=== PATIENT | female | born 1950 | race Caucasian/White ===

== ENCOUNTER 2022-05-06 08:20 | Inpatient (IN) | payer MEDICARE, SELFPAY ==
[2022-05-06] VITALS (50 sets, daily range): BP systolic 73–153; BP diastolic 36–97; PULSE 74–113; RESP 7–26; TEMP 35.9–37.4; O2SAT 96–100
--- NOTE | ~2022-05-06 | XR_ITS ---
EXAMINATION: XR chest 1V portable DATE: 05/12/2022 06:06 INDICATION: Respiratory failure. TECHNIQUE: A single frontal view of the chest was obtained. COMPARISON: Chest single view 05/11/2022, CT abdomen and pelvis 06/05/2022 FINDINGS: The patient is rotated to her left. There are small pleural effusions. There are airspace o pacities in the mid and lower lung zones. No pneumothorax. The heart size is normal. A right upper ex tremity peripherally inserted central venous catheter (PICC) is seen with tip in the superior vena ca va. IMPRESSION: 1. Stable airspace opacities in the mid and lower lung zones, consistent with atelectasis versus pneu monia. 2. Stable small pleural effusions. Reviewed, dictated and finalized at location A. IMPRESSION: 1. Stable airspace opacities in the mid and lower lung zones, consistent with a telectasis versus pneumonia. 2. Stable small pleural effusions.
--- NOTE | ~2022-05-06 | XR_ITS ---
EXAMINATION: XR chest 1V portable DATE: 05/10/2022 06:17 INDICATION: Respiratory failure. TECHNIQUE: A single frontal view of the chest was obtained. COMPARISON: Chest single view 05/09/2022, CT abdomen and pelvis 05/06/2022 FINDINGS: The patient is rotated to her left. There are airspace opacities in the perihilar regions a nd at the lung bases. There are small pleural effusions. No pneumothorax. The heart size is normal. T he endotracheal tube tip is 1.3 cm above the kinsey. A right upper extremity peripherally inserted ce ntral venous catheter (PICC) is seen with tip in the superior vena cava. IMPRESSION: 1. Stable small pleural effusions. 2. Stable airspace opacities in the perihilar regions and at the lung bases, consistent with pulmonar y edema versus pneumonia. Reviewed, dictated and finalized at location A. IMPRESSION: 1. Stable small pleural effusions. 2. Stable airspace opacities in the perihilar regions and at the lung bases, co nsistent with pulmonary edema versus pneumonia.
--- NOTE | ~2022-05-06 | XR_ITS ---
EXAMINATION: XR chest 1V portable DATE: 05/07/2022 05:32 INDICATION: Intubation. TECHNIQUE: A single frontal view of the chest was obtained. COMPARISON: Chest single view 05/06/2022, CT abdomen and pelvis 05/06/2022 FINDINGS: There are airspace opacities in the lower lung zones, left worse than right. There is disco id atelectasis in right midlung zone. There is a small left pleural effusion. No pneumothorax. The he art size is normal. The endotracheal tube tip is 2.3 cm above the kinsey. IMPRESSION: 1. Small left pleural effusion. 2. Stable airspace opacities in the lower lung zones, left worse than right, consistent with atelecta sis or less likely pneumonia. Reviewed, dictated and finalized at location A. IMPRESSION: 1. Small left pleural effusion. 2. Stable airspace opacities in the lower lung zones, left worse than right, co nsistent with atelectasis or less likely pneumonia.
--- NOTE | ~2022-05-06 | XR_ITS ---
XR chest 2V 05/14/2022 13:24 Indication: Cough Procedure: AP and lateral views the chest Comparison: Comparison to multiple prior studies sequentially, with oldest reviewed study dated 05/09. Findings: PICC line tip in the SVC. Heart size normal. There is interstitial edema. Small pleural eff usions. No pneumothorax. Impression: 1: Mild interstitial edema with small pleural effusions. Reviewed, dictated and finalized at location A. Impression: 1: Mild interstitial edema with small pleural effusions.
--- NOTE | ~2022-05-06 | XR_ITS ---
XR chest 1V portable 05/11/2022 01:26 Indication: Increased oxygen demands Procedure: AP portable chest Comparison: Comparison to multiple prior studies sequentially, with oldest reviewed study dated 05/08. Findings: Interval removal of endotracheal tube. PICC line tip in the SVC. Heart size normal. Diffuse bilateral airspace disease unchanged, most likely edema. Small pleural effusions. No pneumothorax. Impression: 1: Unchanged diffuse bilateral airspace disease, most likely edema. Pneumonia less favored. 2: Small pleural effusions. Reviewed, dictated and finalized at location B. Impression: 1: Unchanged diffuse bilateral airspace disease, most likely edema. Pneumonia l ess favored. 2: Small pleural effusions.
--- NOTE | ~2022-05-06 | CT_ITS ---
EXAMINATION: CT abdomen pelvis wo con DATE: 05/06/2022 10:09 INDICATION: Nausea, vomiting and diarrhea. Abdominal discomfort. TECHNIQUE: Computed tomography (CT) of the abdomen and pelvis was performed without intravenous contr ast. The dose-length product was 675.80 mGy-cm. Automated exposure control and iterative reconstructi on technique were employed. COMPARISON: None. FINDINGS: Moderate size hiatal hernia. Small left pleural effusion. Dependent atelectasis of the left lower lobe. Heart size normal. There is atherosclerosis of the aorta without aneurysm. No lymphadeno hannah. Cirrhosis of the liver. Splenomegaly. Multiple collateral vessels are noted in the upper abdomen. The re are gallstones. There is ascites. Colonic diverticulosis without evidence for diverticulitis. Smal l fat-containing umbilical hernia. There is small bowel wall thickening of the duodenum and proximal jejunum, without definite obstruction. No free air identified. There is a possible small bowel intuss usception in the left mid abdomen, possibly transient. No acute osseous abnormality. IMPRESSION: 1. Cirrhosis with portal hypertension. Ascites per 2: Splenomegaly. 3: Abnormal small bowel wall thickening of the duodenum and proximal jejunum without definite obstruc tion, suspicious for enteritis. 4: Possible small bowel intussusception in the left mid abdomen which may be transient. 5: Moderate hiatal hernia. Reviewed, dictated and finalized at location A. IMPRESSION: 1. Cirrhosis with portal hypertension. Ascites per 2: Splenomegaly. 3: Abnormal small bowel wall thickening of the duodenum and proximal jejunum wi thout definite obstruction, suspicious for enteritis. 4: Possible small bowel intussusception in the left mid abdomen which may be tr ansient. 5: Moderate hiatal hernia.
--- NOTE | ~2022-05-06 | XR_ITS ---
XR chest ET placement DATE: 05/06/2022 20:39 INDICATION: Intubation TECHNIQUE: Portable supine AP view on 05/06/2022 at 2031 hours COMPARISON: None FINDINGS: This is a limited single view portable AP chest with the patient rotated to the left. Tip of ET tube is approximately 1.8 cm above kinsey. [place] range is 2-5 cm. Cardiomegaly. Aortic calcification. There is discoid atelectasis or scarring in the right mid lung and infiltrate or atelectasis in both lower lung zones, greatest in the left lower lobe. There may be minimal left pleural effusion. No blunting of the right costophrenic angle. No pneumothorax. Diffuse osteopenia. IMPRESSION: Bilateral infiltrate and/or atelectasis involving primarily the right mid and both lower lung zones, greatest in the left lower lobe ET tube 1.8 cm above kinsey Reviewed, dictated and finalized at Location A. Reviewed, dictated and finalized at location A. IMPRESSION: Bilateral infiltrate and/or atelectasis involving primarily the rig ht mid and both lower lung zones, greatest in the left lower lobe ET tube 1.8 cm above kinsey
--- NOTE | ~2022-05-06 | XR_ITS ---
EXAMINATION: XR chest 1V portable DATE: 05/09/2022 05:56 INDICATION: Respiratory failure. TECHNIQUE: A single frontal view of the chest was obtained. COMPARISON: Chest single view 05/08/2022 FINDINGS: There are small pleural effusions. There are airspace opacities in the mid and lower lung z ones with a perihilar and lower lung predominance. No pneumothorax. The heart size is normal. The end otracheal tube tip is 1.9 cm above the kinsey. A right upper extremity peripherally inserted central venous catheter (PICC) is seen with tip in the superior vena cava. IMPRESSION: 1. Small pleural effusions with worsening on the right. 2. Airspace opacities in the mid and lower lung zones with worsening on the right, consistent with at electasis versus pneumonia. Reviewed, dictated and finalized at location A. IMPRESSION: 1. Small pleural effusions with worsening on the right. 2. Airspace opacities in the mid and lower lung zones with worsening on the rig ht, consistent with atelectasis versus pneumonia.
--- NOTE | ~2022-05-06 | XR_ITS ---
EXAMINATION: XR chest 1V portable DATE: 05/08/2022 05:28 INDICATION: Respiratory failure. TECHNIQUE: A single frontal view of the chest was obtained. COMPARISON: Chest single view 05/07/2022, CT abdomen and pelvis 06/05/2022 FINDINGS: There is a small left pleural effusion. There are airspace opacities in the lower lung zone s. No pneumothorax. The heart size is normal. The endotracheal tube tip is 2.7 cm above the kinsey. IMPRESSION: 1. Stable small left pleural effusion. 2. Stable airspace opacities in the lower lung zones, consistent with atelectasis versus pneumonia. Reviewed, dictated and finalized at location A. IMPRESSION: 1. Stable small left pleural effusion. 2. Stable airspace opacities in the lower lung zones, consistent with atelectas is versus pneumonia.
--- NOTE | ~2022-05-06 | XR_ITS ---
EXAMINATION: XR chest PICC line DATE: 05/08/2022 09:39 INDICATION: Central line placement. TECHNIQUE: A single frontal view of the chest was obtained. COMPARISON: Chest single view at 5:06 AM FINDINGS: There is a small left pleural effusion. There are airspace opacities in the lower lung zone s. No pneumothorax. The heart size is normal. The endotracheal tube tip is 1.5 cm above the kinsey. A right upper extremity peripherally inserted central venous catheter (PICC) is seen with tip in the r ight atrium. IMPRESSION: 1. PICC tip in the right atrium. Retraction 4 cm is recommended. 2. Stable small left pleural effusion. 3. Stable airspace opacities in the lower lung zones, consistent with atelectasis versus pneumonia. Reviewed, dictated and finalized at location A. IMPRESSION: 1. PICC tip in the right atrium. Retraction 4 cm is recommended. 2. Stable small left pleural effusion. 3. Stable airspace opacities in the lower lung zones, consistent with atelectas is versus pneumonia.
[2022-05-06 09:02] LABS: Basophils Percent Auto 0.2 % (0.2-1.2); Eosinophils Percent Auto 0.2 % (0-4.4); Hematocrit 31.7 % (37.0-47.0); Hemoglobin 10.2 g/dL (12.0-15.0); Immature Granulocyte Absolute 0.05 K/mm3 (0.00-0.031); Immature Granulocyte Percent A 0.6 % (0-0.5); Lymphocytes Absolute Auto 1.35 K/mm3 (0.9-3.2); Lymphocytes Percent Auto 16.2 % (18.3-44.2); Mean Corpuscular HGB Conc 32.2 g/dl (32-36); Mean Corpuscular Hemoglobin 29.2 pg (26-34); Mean Corpuscular Volume 90.8 fl (80-100); Mean Platelet Volume 10.3 fl (7.4-10.4); Monocytes Absolute Auto 0.4 K/mm3 (0.1-0.6); Monocytes Percent Auto 4.4 % (2.6-8.5); Neutrophils Absolute Auto 6.5 K/mm3 (1.3-6.7); Neutrophils Percent Auto 78.4 % (45.5-73.1); Platelet Count Result 135 k/mm3 (150-375); Red Blood Count 3.49 M/mm3 (4.2-5.4); Red Cell Distribution Width 15.7 % (11.5-14.5); White Blood Count 8.3 K/mm3 (4.5-10.0)
--- NOTE | 2022-05-06 09:04 | ED.GIBLEED ---
HPI - GI Bleed General Chief complaint: GI Bleed Stated complaint: N/V X1D Time Seen by Provider: 05/06/22 08:53 History of Present Illness HPI Narrative: Patient is a 71-year-old female w/ history of gallstones, fatty liver disease here for evaluation of bloody vomit for the past 6 hours. Patient states that she woke up in the middle of the night, felt nauseated, and threw up vomitus that was red in color. She has had about 4 episodes of vomiting bloody emesis since, 2 episodes have been yellow in color. She additionally notes a diffuse abdominal cramping, most notable in her left lower quadrant. She states that she has had some diarrhea today but has been muddy in color, but has not noticed any blood. Denies any fevers or chills, weight loss, blood thinner use. She does note that she has had some intermittent issues with nosebleeds recently but none in the past day. She has never had a colonoscopy or endoscopy. She denies alcohol or NSAID use. She tells me she sees a liver specialist in [place] (where she is from) and receives regular RUQ ultrasounds, most recent in Aug was stable; had hemangioma but no other findings. Most recent bili was 1.8 in Sep. Related Data Home Medications Medication Instructions Recorded Confirmed albuterol sulfate 90 mcg/actuation 2 inh inhalation Q4H PRN Shortness 05/06/22 05/06/22 aerosol inhaler Of Breath Allergies Allergy/AdvReac Type Severity Reaction Status Date / Time codeine Allergy Vomiting Verified 05/06/22 09:43 Iodinated Contrast Media Allergy Difficulty Verified 05/06/22 09:43 Breathing Review of Systems Review of Systems: Gen: Denies fevers or chills Eyes: Denies eye pain or visual change ENT: Denies congestion Respiratory: Denies shortness of breath or cough CV: Denies chest pain or palpitations GI: Reports abdominal pain, nausea, vomiting, diarrhea. 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 Head: Normocephalic and atraumatic. EYES: PERRLA/EOMI, conjunctivae clear NOSE: No nasal drainage EARS: External ear normal in appearance THROAT: Oropharynx is clear. Mucous membranes are moist. NECK: Supple. No adenopathy, no masses. RESPIRATORY: Airway patent, respirations nonlabored. Clear to auscultation bilaterally, no rales, rhonchi, wheezing. CARDIOVASCULAR: Regular rate and rhythm without murmurs, rubs, or gallops. ABDOMINAL: Normoactive bowel sounds. Soft, nontender, nondistended. No rebound tenderness or guarding. : Normal rectal tone, no external hemorrhoids MUSCULOSKELETAL: Extremities are warm and well-perfused. Moves all extremities well. No edema. NEURO: Normal speech. No focal neurologic deficits. SKIN: Skin is warm and dry. No rashes. PSYCHIATRIC: Normal affect/mood. Course Vital Signs Vital signs: Vital Signs Temperature 98.1 F 05/06/22 08:23 Pulse Rate 113 H 05/06/22 08:23 Respiratory Rate 14 05/06/22 08:23 Blood Pressure 149/64 H 05/06/22 08:23 Pulse Oximetry 98 05/06/22 08:23 Oxygen Delivery Room Air 05/06/22 08:23 Temperature 97.6 F 05/06/22 20:49 Pulse Rate 90 05/06/22 20:49 Respiratory Rate 23 H 05/06/22 20:49 Blood Pressure 141/75 H 05/06/22 20:49 Pulse Oximetry 100 05/06/22 20:49 Oxygen Delivery Mechanical Ventilation 05/06/22 20:01 Procedures Stool Hemoccult
[2022-05-06 09:15] LABS: INR 1.8; Partial Thromboplastin Time 33.1 SECONDS (22.3-36.8); Prothrombin Time 20.3 Seconds (11.1-14.7)
[2022-05-06] MEDS: SODIUM CHLORIDE 0.9% IV 1,000 ML 999 ML IV CONT (09:16)
[2022-05-06] MEDS: ONDANSETRON INJ 4 MG/2 ML VIAL IV PUSH ×2 (09:17→13:25)
[2022-05-06 09:23] LABS: Alanine Aminotransferase 40 U/L (6-35); Alkaline Phosphatase 112 U/L (38-126); Anion Gap 8 mmol/L (8-16); Aspartate Amino Transferase 85 U/L (14-36); Bilirubin,Total 2.3 mg/dL (0.2-1.3); Blood Urea Nitrogen 24 mg/dL (7-17); Calcium 8.3 mg/dL (8.4-10.2); Carbon Dioxide 22 mmol/L (22-30); Chloride 108 mmol/L (98-107); Estimated CRCL calculation 50 ml/min; Estimated Glomerular Filt Rate > 60; Glucose 142 mg/dL (65-110); Potassium 4.6 mmol/L (3.4-5.0); Sodium 138 mmol/L (137-145)
[2022-05-06 10:07] LABS: Lipase 101 U/L (23-300)
[2022-05-06] MEDS: PANTOPRAZOLE SODIUM IV 40 MG VIAL 80 MG IV PUSH (10:36)
[2022-05-06] MEDS: SODIUM CHLORIDE 0.9% IV 100 ML 999 ML (10:42)
[2022-05-06] MEDS: OCTREOTIDE ACETATE 50 MCG/ML VIAL IV PUSH (12:01)
[2022-05-06 12:09] LABS: SARS-CoV-2 RNA PCR Negative
[2022-05-06 12:51] LABS: Hepatitis B Surface Antigen Negative (Negative)
[2022-05-06 13:14] LABS: Hepatitis C Virus Antibody Negative (Negative)
[2022-05-06 13:14] LABS: Hematocrit 25.7 % (37.0-47.0); Hemoglobin 8.2 g/dL (12.0-15.0)
[2022-05-06] MEDS: SODIUM CHLORIDE 0.9% IV 1,000 ML 999 ML (13:24)
--- NOTE | 2022-05-06 13:55 | PM.IMHP ---
H&P: HPI History of Present Illness Date/Time: 05/06/22 13:55 Chief Complaint: Nausea, vomiting, diarrhea. Narrative: This is a very pleasant 71-year-old female with cirrhosis related to JOHNSON who presented to the ED via private vehicle from home for evaluation of nausea, vomiting, and diarrhea. She is from [place] and is driving through the area in route to [place] where she is to partake in a writers conference. After driving a majority of the day, she and her review analyst stopped at a local motel overnight. They both had a chicken sandwich for dinner and not long after eating the patient began to experience some nausea with generalized abdominal cramps. She had multiple episodes of bright red emesis overnight and several episodes of dry heaves thereafter. This morning she had several dark loose stools described as ?muddy in color and texture. She has never had similar symptoms in the past and she has never had a surveillance endoscopy. On arrival to the emergency department her vital signs were stable and hemoglobin was 10.2. She had several episodes of bloody emesis in the emergency department and a repeat hemoglobin was 8.2. She was transfused 2 units of packed red blood cells and was started on octreotide and pantoprazole drips. Dr. Jurado has been consulted and it sounds as though he is going to be taking her for EGD. Review of Systems Review of Systems: Twelve systems were reviewed. No fever, chills, or sweats. No recent cold or flu symptoms. She denies chest pain shortness a breath. Except as documented, all other systems were reviewed and are negative. [facility] Past Medical History Medical History (Updated 05/06/22 @ 23:51 by Lucila Orozco PA-C) Liver cirrhosis secondary to nonalcoholic steatohepatitis (JOHNSON) Surgical History Surgical History (Updated 05/06/22 @ 23:43 by Lucila Orozco PA-C) History of cystoscopy History of mandibular surgery TMJ surgery bilaterally. History of thyroidectomy For benign thyroid goiter. History of tonsillectomy Family History Family History Other Family history non-contributory Social History Social History (Updated 05/06/22 @ 23:44 by Lucila Orozco PA-C) Social History: Surrogate medical decision maker: Candy Snow Noland, daughter. Code status: Full code. Smoking status: Never smoker Alcohol intake: never Substance use: never Substance use type: does not use Additional living arrangements comments: The patient lives in her own home in [facility]. 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 Spiritual care concerns: Yes Meds Home Medications and Allergies Home Medications Medication Instructions Recorded Confirmed Type albuterol sulfate 90 mcg/actuation 2 inh inhalation Q4H PRN Shortness 05/06/22 05/06/22 History aerosol inhaler Of Breath Allergies Allergy/AdvReac Type Severity Reaction Status Date / Time codeine Allergy Vomiting Verified 05/06/22 09:43 Iodinated Contrast Media Allergy Difficulty Verified 05/06/22 09:43 Breathing Vital Signs Vital Signs - 24 hr 05/06/22 08:23 05/06/22 09:21 05/06/22 10:37 Temperature 98.1 F Pulse Rate 113 H 100 100 Respiratory Rate 14 18 20 Blood Pressure 149/64 H 119/52 L 129/60 Pulse Oximetry 98 97 98 Oxygen Delivery Room Air 05/06/22 13:53 Temperature 97.3 F L Pulse Rate 96 Respiratory Rate 18 Blood Pressure 108/43 L Pulse Oximetry 97 Oxygen Delivery Exam Narrative: General: Ill-appearing female lying on her left side in bed. Weight: 80.7 kilograms. BMI: 31.5. HEENT: PERRL, EOMI. Sclera anicteric. Dry mucous membranes. Neck: Supple. Respiratory: Lungs are clear to auscultation bilaterally. Cardiovascular: Regular rate and rhythm with S1-S2. Systolic murmur at the upper sternal border. Gastrointestinal: Abdomen is soft and nondistended with positive bowel sounds. She is ten
[2022-05-06] MEDS: TUBING, BLOOD SET 1 EACH XX (14:25)
--- NOTE | 2022-05-06 14:46 | WPDGICN ---
Assessment and Plan Assessment and plan (1) Bloody vomitus: Code(s): K92.0 - Hematemesis Status: Acute Assessment and Plan: she began vomiting and seen blood in her emesis last night. Since arriving here she has had 2 episodes of hematemesis of a significant amount of dark red blood. (2) Cirrhosis: Code(s): K74.60 - Unspecified cirrhosis of liver Status: Acute Assessment and Plan: She has been told that she has chronic liver disease due to JOHNSON. She is not sure that the term cirrhosis has actually been mentioned. I will start her on ceftriaxone. (3) Thrombocytopenia: Code(s): D69.6 - Thrombocytopenia, unspecified Status: Acute Assessment and Plan: Apparently her platelet count was rather low for a while. She is followed by land resource specialist. 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 I suspect this is due to her chronic liver disease (5) Gallstones: Code(s): K80.20 - Calculus of gallbladder without cholecystitis without obstruction Status: Acute Assessment and Plan: she is asymptomatic from these (6) Anemia due to acute blood loss: Code(s): D62 - Acute posthemorrhagic anemia Status: Acute Assessment and Plan: since arriving here, her blood counts have dropped from 10.8-8.2. She will be receiving 1 unit of blood. Will check H and H every 4 hours. Endoscopy will be performed today on an emergency basis with GI Consult Note Consult date/time: 05/06/22 14:46 HPI: Juanis Omalley is a 71 year old female who is visiting from out of town. She is known to have a fatty liver and she is followed by a mechanical fitter who obtained an ultrasound every 6 months. She also seems an oncologist because of thrombocytopenia. She states that yesterday she began vomiting and so blood in her emesis several times. This was preceded by nausea. She has not had abdominal pain but there was some cramping in the lower abdomen. Her stools were muddy in color but not black and there was no red blood in her stools. She denies using NSAIDs. She states that she had not previously had an EGD although it had been brought up at 1 point. Apparently her bilirubin was 1.8 in September of this year. Here is elevated at 2 point 3. LFTs are slightly elevated. Also her INR is elevated at 1.8. She states that her oncologist has been encouraged by her platelet count coming back up. She does not recall any previous conversations about protime. She denies having had hepatitis. There is no family history of liver disease but she states that her daughter has recently been found to have a slight elevation of 1 or 2 liver enzymes. He had been assumed that her liver disease is due to JOHNSON. Review of Systems Review of Systems: All systems reviewed & are unremarkable except as noted in HPI and below Meds Home Medications and Allergies Allergies Allergy/AdvReac Type Severity Reaction Status Date / Time codeine Allergy Vomiting Verified 05/06/22 09:43 Iodinated Contrast Media Allergy Difficulty Verified 05/06/22 09:43 Breathing Vital Signs Vital Signs - 24 hr 05/06/22 08:23 05/06/22 09:21 05/06/22 10:37 Temperature 36.7 C Pulse Rate 113 H 100 100 Respiratory Rate 14 18 20 Blood Pressure 149/64 H 119/52 L 129/60 Pulse Oximetry 98 97 98 Oxygen Delivery Room Air 05/06/22 13:53 05/06/22 14:10 05/06/22 14:10 Temperature 36.3 C L 36.3 C L 36.3 C L Pulse Rate 96 92 92 Respiratory Rate 18 18 18 Blood Pressure 108/43 L 112/37 L 98/41 L Pulse Oximetry 97 97 99 Oxygen Delivery 05/06/22 14:42 Temperature 35.9 C L Pulse Rate 100 Respiratory Rate 20 Blood Pressure 116/64 Pulse Oximetry 98 Oxygen Delivery Exam Const: General: cooperative, comfortable and alert O
[2022-05-06 15:09] LABS: HAV RESULT Negative (Negative)
[2022-05-06 15:49] LABS: Hepatitis B Core IgM Result Negative (Negative)
--- NOTE | 2022-05-06 16:45 | ADMGEN ---
This patient, Juanis Omalley, was admitted to Intensive Care Unit-8 at 1641. Patient/family oriented to hospital policies and general routines including ID bracelet, bed and alarms, visiting hours, pain management, procedures, bathroom and other care routines, personal items, smoking policy, room service/diet, and visiting hours. Information on how to activate the Rapid Response Team has been discussed. Patient/Family are encouraged to report perceived risks to care and to ask questions if they do not understand what they are told or what they should do.
[2022-05-06] MEDS: SODIUM CHLORIDE 0.9% IV 250 ML 30 ML IV CONT (17:20)
--- NOTE | 2022-05-06 18:48 | WPDANESEPPF ---
Anes - Initial Pre Proc Eval Procedure: Operation Date: 05/06/22 18:30 Proposed Procedures p Esophagogastroduodenoscopy - Juventino Jurado MD Date/Time: 05/06/22 18:48 Surgeon: Alphonse Krueger MD Pre Op Diagnosis: GI Bleed Patient Data Age: 71 Gender: F Height: 1.6 m Weight: 80.7 kg Last Vital Signs Temp 37.1 C 05/06/22 17:39 Pulse 95 05/06/22 18:25 Resp 22 H 05/06/22 18:25 BP 107/46 L 05/06/22 18:25 Pulse Ox 97 05/06/22 18:25 O2 Del Method Room Air 05/06/22 08:23 Allergies Allergy/AdvReac Type Severity Reaction Status Date / Time codeine Allergy Vomiting Verified 05/06/22 09:43 Iodinated Contrast Media Allergy Difficulty Verified 05/06/22 09:43 Breathing Home Medications Medication Instructions Recorded Confirmed Type albuterol sulfate 90 mcg/actuation 2 inh inhalation Q4H PRN Shortness 05/06/22 05/06/22 History aerosol inhaler Of Breath Laboratory Tests 05/06/22 05/06/22 05/06/22 08:53 08:54 08:54 WBC 8.3 K/mm3 K/mm3 (4.5-10.0) RBC 3.49 M/mm3 L M/mm3 (4.2-5.4) Hgb 10.2 g/dL L g/dL (12.0-15.0) Hct 31.7 % L % (37.0-47.0) MCV 90.8 fl fl (80-100) MCH 29.2 pg pg (26-34) MCHC 32.2 g/dl g/dl (32-36) RDW 15.7 % H % (11.5-14.5) Plt Count 135 k/mm3 L k/mm3 (150-375) MPV 10.3 fl fl (7.4-10.4) Immature Gran % (Auto) 0.6 % H % (0-0.5) Neut % (Auto) 78.4 % H % (45.5-73.1) Lymph % (Auto) 16.2 % L % (18.3-44.2) [place] % (Auto) 4.4 % % (2.6-8.5) Eos % (Auto) 0.2 % % (0-4.4) Baso % (Auto) 0.2 % % (0.2-1.2) Lymph # (Auto) 1.35 K/mm3 K/mm3 (0.9-3.2) [place] # (Auto) 0.4 K/mm3 K/mm3 (0.1-0.6) Eos # (Auto) 0.0 K/mm3 K/mm3 (0-0.3) Baso # (Auto) 0.0 K/mm3 K/mm3 (0.0-0.1) Abs Immat Gran (auto) 0.05 K/mm3 H K/mm3 (0.00-0.031) Absolute Neuts (auto) 6.5 K/mm3 K/mm3 (1.3-6.7) Absolute Nucleated RBC 0.0 K/mm3 K/mm3 (0.0-0.012) Nucleated RBC % 0.0 % % (0.0-0.2) PT 20.3 Seconds H Seconds (11.1-14.7) INR 1.8 APTT 33.1 SECONDS SECONDS (22.3-36.8) Sodium 138 mmol/L mmol/L (137-145) Potassium 4.6 mmol/L mmol/L (3.4-5.0) Chloride 108 mmol/L H mmol/L (98-107) Carbon Dioxide 22 mmol/L mmol/L (22-30) Anion Gap 8 mmol/L mmol/L (8-16) BUN 24 mg/dL H mg/dL (7-17) Creatinine 0.90 mg/dL mg/dL (0.7-1.0) Estim Creat Clear Calc 50 ml/min ml/min Estimated GFR > 60 (59 - ) Glucose 142 mg/dL H mg/dL (65-110) Calcium 8.3 mg/dL L mg/dL (8.4-10.2) Total Bilirubin 2.3 mg/dL H mg/dL (0.2-1.3) AST 85 U/L H U/L (14-36) ALT 40 U/L H U/L (6-35) Alkaline Phosphatase 112 U/L U/L (38-126) Total Protein 7.0 g/dL g/dL (6.3-8.2) Albumin 3.0 g/dL L g/dL (3.5-5.1) Lipase Hepatitis A IgM Ab Hep Bs Antigen Hep B Core IgM Ab Hepatitis C Ab Screen SARS-CoV-2 RNA (RT-PCR) Blood Type Antibody Screen Crossmatch 05/06/22 05/06/22 05/06/22 08:54 08:54 10:31 WBC RBC Hgb Hct MCV MCH MCHC RDW Plt Count MPV Immature Gran % (Auto) Neut % (Auto) Lymph % (Auto) [place] % (Auto) Eos % (Auto) Baso % (Auto) Lymph # (Auto) [place] # (Auto) Eos # (Auto) Baso # (Auto) Abs Immat Gran (auto) Absolute Neuts (auto) Absolute Nucleated RBC Nucle
[2022-05-06] MEDS: METOCLOPRAMIDE HCL INJ 10 MG/2 ML VIAL IV PUSH (18:58)
[2022-05-06] MEDS: LACTATED RINGERS 1,000 ML 150 ML IV CONT ×2 (19:12→23:36)
--- NOTE | 2022-05-06 20:30 | PC.NURSE ---
Dr. Moon updated of patient condition. Change rate to 18, 400TV, 30%, 5peep. Stop protonix drip, give 40mg IV push BID. Fent/Versed for sedation Rass -2. ABG in 30 mins after changes. Q4h H/H labs. Chest xray now, and in AM. ABG in AM
[2022-05-06 20:35] LABS: Hematocrit 25.7 % (37.0-47.0); Hemoglobin 7.6 g/dL (12.0-15.0); Mean Corpuscular HGB Conc 29.6 g/dl (32-36); Mean Corpuscular Hemoglobin 29.5 pg (26-34); Mean Corpuscular Volume 99.6 fl (80-100); Mean Platelet Volume 10.8 fl (7.4-10.4); Platelet Count Result 109 k/mm3 (150-375); Red Blood Count 2.58 M/mm3 (4.2-5.4); Red Cell Distribution Width 15.7 % (11.5-14.5); White Blood Count 14.4 K/mm3 (4.5-10.0)
[2022-05-06] MEDS: MIDAZOLAM 100MG/NS 100ML(*CRX) 100 MG/100 ML BAG IV CONT (20:42)
[2022-05-06] MEDS: FENTANYL 2,500MCG/NS250ML(*CRX 2,500 MCG/250 ML BAG IV CONT (20:43)
[2022-05-06 20:47] LABS: Alanine Aminotransferase 24 U/L (6-35); Albumin Level 1.4 g/dL (3.5-5.1); Alkaline Phosphatase 49 U/L (38-126); Anion Gap 2 mmol/L (8-16); Aspartate Amino Transferase 44 U/L (14-36); Bilirubin,Total 1.9 mg/dL (0.2-1.3); Blood Urea Nitrogen 29 mg/dL (7-17); Calcium 6.2 mg/dL (8.4-10.2); Carbon Dioxide 18 mmol/L (22-30); Chloride 117 mmol/L (98-107); Estimated CRCL calculation 51 ml/min; Estimated Glomerular Filt Rate > 60; Glucose 148 mg/dL (65-110); Magnesium 1.5 mg/dL (1.6-2.3); Potassium 5.1 mmol/L (3.4-5.0); Sodium 137 mmol/L (137-145)
[2022-05-06 21:17] LABS: Alveolar/Arterial O2 Gradient 99.5 mmHg; Base Excess ABG -8.8 mEq/l (+/-2.0); Fractional Inspired Oxygen 30 %; HCO3 ABG 16.2 mEq/l (22.0-26.0); Methemoglobin ABG 0.5 %THb (0-1.5); Oxygen Content ABG 16.4 %vol (16.0-22.0); Oxygen Saturation ABG 94.5 % (95.0-100.0); PCO2 ABG 32.1 mmHg (35.0-45.0); PO2 ABG 76.7 mmHg (80.0-100.0); PO2 FiO2 Ratio Arterial Blood 2.56 %; Reduced Hemoglobin 5.5 %THb (0-5.0); Total Hemoglobin 12.4 g/dL (12.0-18.0)
[2022-05-06 21:24] LABS: Device VENTILATOR; Modified Allen's Test Pass; Site Drawn RIGHT RADIAL
[2022-05-06 21:25] LABS: Arterial Blood Gas Ventilator rate 18 /MIN
[2022-05-06 21:26] LABS: Arterial Blood Gas PEEP 5 cmH2O; Arterial Blood Gas Tidal Volume 400 ml; Arterial Blood Gas Vent Mode CMV
[2022-05-06] MEDS: MINERAL OIL/WHITE PETROLATUM OINTMENT 1 APPLIC EACH EYE (22:05)
[2022-05-06] MEDS: PANTOPRAZOLE SODIUM IV 40 MG VIAL IV PUSH (22:10)
[2022-05-07] VITALS (32 sets, daily range): BP systolic 111–138; BP diastolic 56–86; PULSE 79–99; RESP 18; TEMP 36.8–37.3; O2SAT 95–100
[2022-05-07 01:02] LABS: Hematocrit 29.5 % (37.0-47.0); Hemoglobin 9.9 g/dL (12.0-15.0)
[2022-05-07 01:17] LABS: Magnesium 1.6 mg/dL (1.6-2.3); Potassium 5.4 mmol/L (3.4-5.0)
--- NOTE | 2022-05-07 01:44 | PC.NURSE ---
Updated Dr. Moon regarding lab values. Give 2 amps of Bicarb IV push x1 now. Give 2 gm Mag IVPB
[2022-05-07 01:45] LABS: INR 1.7
[2022-05-07 01:46] LABS: Partial Thromboplastin Time 32.7 SECONDS (22.3-36.8)
[2022-05-07 01:51] LABS: Glucose Point of Care 146 mg/dl (65-105)
[2022-05-07 01:51] LABS: Fibrinogen 124 mg/dl (215-510)
[2022-05-07] MEDS: SODIUM BICARBONATE 8.4% 50 MEQ/50 ML SYRINGE 100 MEQ IV PUSH (02:13)
[2022-05-07] MEDS: MAGNESIUM SULF 2 GM/WATER 50ML 2 GM/50 ML BAG IVPB (02:13)
[2022-05-07 04:34] LABS: Hemoglobin 9.5 g/dL (12.0-15.0)
[2022-05-07 04:45] LABS: Alanine Aminotransferase 31 U/L (6-35); Albumin Level 2.2 g/dL (3.5-5.1); Alkaline Phosphatase 71 U/L (38-126); Anion Gap 2 mmol/L (8-16); Aspartate Amino Transferase 55 U/L (14-36); Bilirubin,Total 3.5 mg/dL (0.2-1.3); Blood Urea Nitrogen 34 mg/dL (7-17); Carbon Dioxide 22 mmol/L (22-30); Chloride 112 mmol/L (98-107); Estimated CRCL calculation 53 ml/min; Estimated Glomerular Filt Rate > 60; Glucose 150 mg/dL (65-110); Magnesium 2.4 mg/dL (1.6-2.3); Potassium 4.5 mmol/L (3.4-5.0); Sodium 136 mmol/L (137-145)
[2022-05-07 04:51] LABS: INR 1.7; Prothrombin Time 18.9 Seconds (11.1-14.7)
[2022-05-07 04:52] LABS: Immature Platelet Fraction Pct 2.3 % (0.9-11.2); Mean Corpuscular HGB Conc 33.9 g/dl (32-36); Mean Corpuscular Hemoglobin 29.4 pg (26-34); Mean Corpuscular Volume 86.8 fl (80-100); Mean Platelet Volume 10.5 fl (7.4-10.4); Partial Thromboplastin Time 32.8 SECONDS (22.3-36.8); Platelet Count Result 75 k/mm3 (150-375); Red Blood Count 3.26 M/mm3 (4.2-5.4); Red Cell Distribution Width 15.2 % (11.5-14.5); White Blood Count 11.5 K/mm3 (4.5-10.0)
[2022-05-07 05:13] LABS: Alveolar/Arterial O2 Gradient 96.9 mmHg; Base Excess ABG -0.4 mEq/l (+/-2.0); Carboxyhemoglobin 0.3 % THb (0-2.0); Fractional Inspired Oxygen 30 %; HCO3 ABG 22.1 mEq/l (22.0-26.0); Methemoglobin ABG 0.5 %THb (0-1.5); Oxygen Saturation ABG 97.1 % (95.0-100.0); PCO2 ABG 29.2 mmHg (35.0-45.0); PO2 ABG 82.7 mmHg (80.0-100.0); PO2 FiO2 Ratio Arterial Blood 2.76 %; Reduced Hemoglobin 4.2 %THb (0-5.0); Total Hemoglobin 10.4 g/dL (12.0-18.0); pH ABG 7.497 (7.350-7.450)
[2022-05-07 05:15] LABS: Arterial Blood Gas PEEP 5 cmH2O; Arterial Blood Gas Tidal Volume 400 ml; Arterial Blood Gas Vent Mode CMV; Arterial Blood Gas Ventilator rate 18 /MIN; Device VENTILATOR; Modified Allen's Test Pass; Site Drawn RIGHT RADIAL
[2022-05-07] MEDS: LACTATED RINGERS 1,000 ML 150 ML IV CONT (07:19)
--- NOTE | 2022-05-07 08:11 | WPDCNINT ---
Assessment and Plan Assessment and plan (1) Esophageal varices with bleeding: Code(s): I85.01 - Esophageal varices with bleeding Status: Acute Assessment and Plan: Patient has cirrhosis and presented with upper GI bleed EGD showed bleeding varices which were band ligated Plan for repeat EGD today Continue hemoglobin monitoring q.6 hours Patient has received 4 units of PRBC and 2 units of FFP Monitor coags Continue IV Protonix Continue IV octreotide infusion SBP prophylaxis with Rocephin Continue IV fluids were decreased rate Add 25% albumin (2) Acute respiratory failure: Code(s): J96.00 - Acute respiratory failure, unspecified whether with hypoxia or hypercapnia Status: Acute Assessment and Plan: Continue full mechanical ventilation support to prevent hypoxemia/hypercarbia and end organ damage. ABG reviewed and decrease tidal volume to 360 Chest x-ray reviewed Will leave patient on ventilator at this time as there is a plan to repeat EGD today. Post EGD depending on how patient is doing will evaluate for weaning trial and extubation if possible Low tidal volume ventilation strategy to prevent volutrauma P.r.n. 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: Code(s): D68.4 - Acquired coagulation factor deficiency Status: Acute Assessment and Plan: See above (5) Anemia due to acute blood loss: Code(s): D62 - Acute posthemorrhagic anemia Status: Acute Assessment and Plan: See above (6) Thrombocytopenia: Code(s): D69.6 - Thrombocytopenia, unspecified Status: Acute Assessment and Plan: Baseline unknown but likely secondary to cirrhosis and splenomegaly Monitor levels and transfuse if needed (7) Enteritis: Code(s): K52.9 - Noninfective gastroenteritis and colitis, unspecified Status: Acute Assessment and Plan: CT showed some evidence of enteritis and possible small bowel intussusception Add Flagyl Check C diff in case patient has diarrhea Plan DVT prophylaxis - SCD on IV Stress ulcer prophylaxis -on IV PPI- Nutrition - NPO. Code Status - Full Code Total Critical Care Time - 35minutes Due to a high probability of clinically significant, life threatening deterioration, the patient required my highest level of preparedness to intervene emergently and I personally spent this critical care time directly and personally managing the patient. This critical care time included obtaining a history; examining the patient; pulse oximetry; ordering and review of studies; arranging urgent treatment with development of a management plan; evaluation of patient's response to treatment; frequent reassessment; and discussions with other providers. It was exclusive of separately billable procedures and treating other patients and teaching time. Please see Assessment and Plan section and the rest of the note for further information on patient assessment and treatment Community Service Director Consult Note Consult date: 05/07/22 Reason for consult: Upper GI bleed, acute respiratory failure HPI: Juanis Omalley is a 71 year old female with cirrhosis related to JOHNSON who presented to the ED yesterday for evaluation of nausea, vomiting, and bloody emesis. She is from [place] and is driving through the area in route to [place] where she is to partake in a writers conference. She had multiple episodes of bright red emesis overnight and several episodes of dry heaves thereafter. Yesterday morning she had several dark loose stools described as ?muddy in color and texture. She has never had similar symptoms in the past a
[2022-05-07] MEDS: MINERAL OIL/WHITE PETROLATUM OINTMENT 1 APPLIC EACH EYE ×2 (09:17→20:07)
[2022-05-07] MEDS: CALCIUM GLUC 2,000 MG/NS 100ML 2,000 MG/100 ML BAG 100 MG IVPB (09:17)
[2022-05-07] MEDS: metroNIDAZOLE 500 MG/ISO 100ML 500 MG/100 ML BAG 100 MG IVPB ×3 (09:17→21:58)
[2022-05-07] MEDS: PANTOPRAZOLE SODIUM IV 40 MG VIAL IV PUSH ×2 (09:17→20:14)
[2022-05-07 12:22] LABS: Hemoglobin 9.9 g/dL (12.0-15.0)
[2022-05-07 12:28] LABS: Glucose Point of Care 141 mg/dl (65-105)
[2022-05-07] MEDS: ALBUMIN HUMAN 25% 25 GM/100 ML 100 ML IVPB ×2 (12:32→17:52)
[2022-05-07] MEDS: METOCLOPRAMIDE HCL INJ 10 MG/2 ML VIAL IV PUSH (12:33)
[2022-05-07 12:56] LABS: Fibrinogen 122 mg/dl (215-510)
[2022-05-07] MEDS: MIDAZOLAM HCL (*CRX) 2 MG/2 ML VIAL 4 MG IV PUSH (15:15)
--- NOTE | 2022-05-07 16:41 | SUR.OPER ---
ROSHNI, SANITOR AT BEDSIDE DURING PROCEDURE CONTROLLING PT SEDATION. PRE-OP VITAL SIGNS: 109/61, 84, 98%, 18, 98.4. EGD START TIME 1622, VITAL SIGNS 120/50, 60, 98%. MID PROCEDURE 142/72, 82. EGD END TIME 1637, VITAL SIGNS 163/70, 67.
[2022-05-07 18:05] LABS: Glucose Point of Care 147 mg/dl (65-105)
[2022-05-07 18:24] LABS: Hematocrit 28.9 % (37.0-47.0); Hemoglobin 9.1 g/dL (12.0-15.0)
[2022-05-07 19:30] LABS: Toxigenic C. Diff NEGATIVE (NEGATIVE)
--- NOTE | 2022-05-07 20:30 | PC.NURSE ---
Daughter Chandni called and was updated on patient's condition and plan of care.
[2022-05-08] VITALS (39 sets, daily range): BP systolic 96–136; BP diastolic 44–63; PULSE 72–90; RESP 16–18; TEMP 36.9–37.7; O2SAT 90–100; BMI 35.4
--- NOTE | 2022-05-08 | ECHO_ITS ---
Patient Info Name: Juanis Omalley Age: 71 years : 1950 Gender: Female Ht: 63 in Wt: 199 lbs BSA: 2.04 m2 HR: 74 bpm BP: 129 / 59 mmHg Heart Rhythm: Sinus Rhythm Exam Date: 05/08/2022 12:07 PM Exam Location: [facility] Patient Status: Inpatient Admit Date: 05/06/2022 Staff Ordering Physician: Medhat Moon MD Media Aid: Tomas Sung, ROXANNE, RT Attending Provider: Alphonse Krueger MD Exam Type: CA echo doppler color flow Study Info Indications R01.1 - Cardiac murmur, unspecified Complete two-dimensional, color flow and Doppler transthoracic echocardiogram is performed. Summary 1. Complete two-dimensional, color flow and Doppler transthoracic echocardiogram is performed. 2. Left ventricular chamber dimension is normal. 3. Left ventricular systolic function is normal, estimated at 65-70%. 4. There is mildly increased left ventricular wall thickness. 5. The left ventricular diastolic function is abnormal. 6. Left atrial chamber dimension is mildly enlarged. 7. There is mild mitral valve regurgitation. 8. There is mild tricuspid valve regurgitation. 9. Mild pulmonary hypertension, estimated pulmonary arterial systolic pressure is 36 mmHg. Left Ventricle Left ventricular chamber dimension is normal. Left ventricular systolic function is normal, estimated at 65-70%. There is mildly increased left ventricular wall thickness. The left ventricular diastolic function is abnormal. Right Ventricle Right ventricular chamber dimension is normal. Right ventricular systolic function is normal. Left Atria Left atrial chamber dimension is mildly enlarged. Right Atria Right atrial chamber dimension is normal. Atrial Septum Intact interatrial septum visualized by color flow imaging. Aortic Valve The aortic valve is trileaflet. There is mild aortic valve sclerosis. There is no aortic valve stenosis. There is trace aortic valve regurgitation. Pulmonic Valve The pulmonic valve is normal. There is no pulmonic valve stenosis. There is trace pulmonic regurgitation. Mitral Valve The mitral valve has normal leaflets. There is no mitral valve stenosis. There is mild mitral valve regurgitation. Tricuspid Valve The tricuspid valve leaflets are normal. There is no significant tricuspid valve stenosis. There is mild tricuspid valve regurgitation. Mild pulmonary hypertension, estimated pulmonary arterial systolic pressure is 36 mmHg. Pericardium/Pleural The pericardium appears normal. There is no pericardial effusion. Aorta The aortic root size at the sinus of Valsalva is normal. Left Ventricular Outflow Tract Name Value Normal LVOT 2D LVOT Diameter 2.0 cm LVOT Doppler LVOT Peak Gradient 7 mmHg LVOT Mean Gradient 4 mmHg LVOT VTI 32 cm LVOT VTI/AV VTI Ratio 0.8 LVOT Stroke Volume 97 ml LVOT CO 7.3 l/min LVOT CI 3.6 l/min/m2 Mitral Valve ----
[2022-05-08] MEDS: ALBUMIN HUMAN 25% 25 GM/100 ML 100 ML IVPB ×5 (00:13→23:59)
[2022-05-08 00:51] LABS: Glucose Point of Care 142 mg/dl (65-105)
[2022-05-08 01:23] LABS: Hemoglobin 6.8 g/dL (12.0-15.0)
[2022-05-08 01:24] LABS: Hematocrit 20.4 % (37.0-47.0)
--- NOTE | 2022-05-08 01:30 | PC.NURSE ---
RN updated Daughter Chandni of Hgb levels and order to transfuse 1 unit of blood.
[2022-05-08] MEDS: SODIUM CHLORIDE 0.9% IV 250 ML 30 ML IV CONT ×2 (02:10→10:30)
[2022-05-08 04:48] LABS: Alveolar/Arterial O2 Gradient 105.9 mmHg; Base Excess ABG -0.8 mEq/l (+/-2.0); Carboxyhemoglobin 0.2 % THb (0-2.0); Fractional Inspired Oxygen 30 %; HCO3 ABG 22.8 mEq/l (22.0-26.0); Methemoglobin ABG 0.5 %THb (0-1.5); Oxygen Content ABG 11.7 %vol (16.0-22.0); Oxygen Saturation ABG 94.6 % (95.0-100.0); Oxyhemoglobin 92.5 % THb (90.0-100.0); PCO2 ABG 33.7 mmHg (35.0-45.0); PO2 ABG 68.4 mmHg (80.0-100.0); PO2 FiO2 Ratio Arterial Blood 2.28 %; Reduced Hemoglobin 6.8 %THb (0-5.0); Total Hemoglobin 8.9 g/dL (12.0-18.0); pH ABG 7.449 (7.350-7.450)
[2022-05-08 04:51] LABS: Device VENTILATOR; Modified Allen's Test Pass; Site Drawn RIGHT RADIAL
[2022-05-08 04:52] LABS: Arterial Blood Gas PEEP 5 cmH2O; Arterial Blood Gas Tidal Volume 360 ml; Arterial Blood Gas Vent Mode CMV; Arterial Blood Gas Ventilator rate 18 /MIN
[2022-05-08] MEDS: metroNIDAZOLE 500 MG/ISO 100ML 500 MG/100 ML BAG 100 MG IVPB ×3 (05:00→21:56)
[2022-05-08 06:16] LABS: Glucose Point of Care 124 mg/dl (65-105)
[2022-05-08 06:24] LABS: Hemoglobin 8.3 g/dL (12.0-15.0); Immature Platelet Fraction Pct 4.2 % (0.9-11.2); Mean Corpuscular HGB Conc 33.2 g/dl (32-36); Mean Corpuscular Hemoglobin 29.5 pg (26-34); Mean Platelet Volume 10.7 fl (7.4-10.4); Platelet Count Result 41 k/mm3 (150-375); Red Blood Count 2.81 M/mm3 (4.2-5.4); Red Cell Distribution Width 15.5 % (11.5-14.5); White Blood Count 6.3 K/mm3 (4.5-10.0)
[2022-05-08 06:32] LABS: INR 1.9; Prothrombin Time 20.7 Seconds (11.1-14.7)
[2022-05-08 06:37] LABS: Alanine Aminotransferase 24 U/L (6-35); Albumin Level 2.8 g/dL (3.5-5.1); Alkaline Phosphatase 50 U/L (38-126); Anion Gap 9 mmol/L (8-16); Aspartate Amino Transferase 43 U/L (14-36); Bilirubin,Total 1.8 mg/dL (0.2-1.3); Blood Urea Nitrogen 36 mg/dL (7-17); Calcium 7.7 mg/dL (8.4-10.2); Carbon Dioxide 23 mmol/L (22-30); Chloride 110 mmol/L (98-107); Estimated CRCL calculation 49 ml/min; Estimated Glomerular Filt Rate 55; Glucose 122 mg/dL (65-110); Magnesium 2.2 mg/dL (1.6-2.3); Phosphorus 2.3 mg/dL (2.5-4.5); Potassium 3.9 mmol/L (3.4-5.0); Sodium 142 mmol/L (137-145)
--- NOTE | 2022-05-08 08:01 | WPDGIPROGNO ---
Progress Note: A&P Assessment and Plan (1) Bloody vomitus: Code(s): K92.0 - Hematemesis Status: Acute Assessment and Plan: Shortly after arriving in the emergency room she had hematemesis. Subsequent emergency EGD 2 days ago revealed very large esophageal varices with active bleeding. Bands were placed on varices. Some would not it here for unknown reasons. Repeat EGD yesterday showed at least [address] A 3rd band was placed in the varicosity just below the previous site of bleeding. I should add that dark red blood was seen emanating up from t gastric lumen during that procedure. I am still unable to examine the stomach and duodenum the for fear of dislodging bands or friction causing more bleeding from her varices. Her hemoglobin dropped to 6.8 last night. After 1 unit of blood was 8.3 and now is 7.3. (2) Cirrhosis: Code(s): K74.60 - Unspecified cirrhosis of liver Status: Acute Assessment and Plan: She has been told that she has chronic liver disease due to JOHNSON. She is not sure that the term cirrhosis has actually been mentioned. I will start her on ceftriaxone. (3) Thrombocytopenia: Code(s): D69.6 - Thrombocytopenia, unspecified Status: Acute Assessment and Plan: Apparently her platelet count was rather low for a while. She is followed by hog [facility]. Her platelet count is now 135 K 05/08/2022 her platelet count has gradually dropped. Is 41,000 at present. Will discuss platelet transfusion with walking dragline oiler. 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 I suspect this is due to her chronic liver disease 05/08/2022 INR is higher. I will give her 2 units of FFP today (5) Gallstones: Code(s): K80.20 - Calculus of gallbladder without cholecystitis without obstruction Status: Acute Assessment and Plan: she is asymptomatic from these (6) Anemia due to acute blood loss: Code(s): D62 - Acute posthemorrhagic anemia Status: Acute Assessment and Plan: since arriving here, her blood counts have dropped from 10.8-8.2. She will be receiving 1 unit of blood. Will check H and H every 4 hours. Endoscopy will be performed today on an emergency basis with 05/08/2022. She had received 4 units of blood through yesterday. When her blood counts dropped during the night she received 1 more unit and today her hemoglobin is up from 6.8 last night to 8.3 at present Plan She will continue to require close observation, management of complications of her varices including her coagulopathy. Subjective Date/time seen: 05/08/22 08:01 At the time of her repeat endoscopy yesterday we found that at least 2 of the bands placed the night before were still in place. There was dark red blood emanating up from the gastric lumen. I elected to band 1 more accessible varicosity in the distal esophagus. Her vital signs have remained stable but she did drop her blood counts during the night. She has received 1 more unit of blood. Her INR remains elevated, actually higher now at 1.9. I am sure coagulopathy it contributes to the persistent bleeding. Exam Const: General: other (Sedated due to intubation); No awake Orientation/consciousness: patient oriented x3 Resp: Auscultation: clear to auscultation bilaterally Cardio: Rhythm: regular rhythm GI: Inspection: normal to inspection GI Palp: Yes Soft to palpation and No Guarding due to palpation present (GI) Auscultation: normal bowel sounds Neuro: General: patient oriented x3 Motor exam (neuro): No Asterixis during motor activity present Objective Data Vital Signs Vital Signs: Vital Signs - 24 hr 05/07/22 08:07 05/07/22 10:00 05/07/22 11:11 Temperature Pulse Rate 87 84 84 Respiratory Rate 18 Blood Pressure 130/70 Pulse Oximetry 98 99 97
--- NOTE | 2022-05-08 08:39 | WPDINTPN ---
Progress Note: A&P Assessment and Plan (1) Esophageal varices with bleeding: Code(s): I85.01 - Esophageal varices with bleeding Status: Acute Assessment and Plan: Patient has cirrhosis and presented with upper GI bleed 05/06 EGD showed bleeding varices which were band ligated 4 units of PRBC and 2 units of FFP were given 05/07 repeat EGD showed blood in stomach and another varix was banded. Patient was given another 1 unit of blood overnight 05/08 2 units of FFP ordered Continue hemoglobin monitoring q.6 hours Monitor coags Continue IV Protonix Continue IV octreotide infusion Continue SBP prophylaxis with Rocephin Continue 25% albumin (2) Acute respiratory failure: Code(s): J96.00 - Acute respiratory failure, unspecified whether with hypoxia or hypercapnia Status: Acute Assessment and Plan: Continue full mechanical ventilation support to prevent hypoxemia/hypercarbia and end organ damage. ABG and vent settings reviewed Chest x-ray reviewed I was planning to extubate the patient but in light of ongoing bleeding I will continue ankle ventilation for another 24 hours to ensure hemoglobin is stable and patient does not need another EGD. Low tidal volume ventilation strategy to prevent volutrauma P.r.n. 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: Code(s): D68.4 - Acquired coagulation factor deficiency Status: Acute Assessment and Plan: See above (5) Anemia due to acute blood loss: Code(s): D62 - Acute posthemorrhagic anemia Status: Acute Assessment and Plan: See above (6) Thrombocytopenia: Code(s): D69.6 - Thrombocytopenia, unspecified Status: Acute Assessment and Plan: Baseline unknown but likely secondary to cirrhosis and splenomegaly Platelet level 41,000 today, In light of active bleeding will transfuse 1 unit of platelets (7) Enteritis: Code(s): K52.9 - Noninfective gastroenteritis and colitis, unspecified Status: Acute Assessment and Plan: CT showed some evidence of enteritis and possible small bowel intussusception Continue Flagyl with Rocephin C diff negative Plan DVT prophylaxis - SCD on IV Stress ulcer prophylaxis -on IV PPI- Nutrition - NPO. Code Status - Full Code Patient has poor IV access. Will obtain PICC line Total Critical Care Time - 30 minutes Due to a high probability of clinically significant, life threatening deterioration, the patient required my highest level of preparedness to intervene emergently and I personally spent this critical care time directly and personally managing the patient. This critical care time included obtaining a history; examining the patient; pulse oximetry; ordering and review of studies; arranging urgent treatment with development of a management plan; evaluation of patient's response to treatment; frequent reassessment; and discussions with other providers. It was exclusive of separately billable procedures and treating other patients and teaching time. Please see Assessment and Plan section and the rest of the note for further information on patient assessment and treatment Subjective Date/time seen: 05/08/22 08:39 Patient had repeat EGD done yesterday and varices were banded again. Blood was seen in the stomach. Full report is pending. Required 1 additional unit of PRBC transfusion overnight. Remains on the ventilator and sedation Hemodynamically stable Urine output is on the lower side Afebrile Wakes up and follows commands on the ventilator desp
[2022-05-08] MEDS: LIDOCAINE HCL 1% PF INJ 5 ML VIAL INFILTRATE (09:10)
[2022-05-08] MEDS: SODIUM PHOSPHATE 20 MM in DEXTROSE 5% IN WATER 250 ML 50 MM IVPB (10:04)
[2022-05-08] MEDS: MINERAL OIL/WHITE PETROLATUM OINTMENT 1 APPLIC EACH EYE ×2 (10:09→20:11)
[2022-05-08] MEDS: PANTOPRAZOLE SODIUM IV 40 MG VIAL IV PUSH ×2 (10:09→20:11)
[2022-05-08] MEDS: PHYTONADIONE INJ 10 MG/ML AMP IM (10:09)
[2022-05-08] MEDS: MIDAZOLAM 100MG/NS 100ML(*CRX) 100 MG/100 ML BAG IV CONT (10:16)
--- NOTE | 2022-05-08 11:52 | PCFNICU ---
ICU Rounding Note: Pt current nutrition is NPO. Last recorded weight is 90.6 kg. Bowel Motility:+BM reported 05/08 Labs Reviewed:PO4 2.3,GFR 55, BUN 36, Hct 25.0,Hgb 8.3, Glu 122 Meds Noted:Vancomycin, Protonix, Flagyl, Versed, Fentanyl. Skin: WNL Additional Notes: Patient current with mechanical vent Day 2. No plans for nutrition today. PICC placed today. Following daily in ICU rounds.
[2022-05-08 12:26] LABS: Ammonia 26 umol/L (9-30)
[2022-05-08 12:27] LABS: Glucose Point of Care 132 mg/dl (65-105)
[2022-05-08 12:28] LABS: Hematocrit 22.1 % (37.0-47.0); Hemoglobin 7.3 g/dL (12.0-15.0)
[2022-05-08] MEDS: CENTRAL LINE FLUSH 10 ML IV PUSH ×2 (14:37→21:57)
[2022-05-08] MEDS: FENTANYL 2,500MCG/NS250ML(*CRX 2,500 MCG/250 ML BAG IV CONT (16:12)
[2022-05-08 17:53] LABS: Glucose Point of Care 110 mg/dl (65-105)
[2022-05-08 18:10] LABS: Hematocrit 22.6 % (37.0-47.0); Hemoglobin 7.4 g/dL (12.0-15.0); Immature Platelet Fraction Pct 4.4 % (0.9-11.2); Mean Corpuscular HGB Conc 32.7 g/dl (32-36); Mean Corpuscular Volume 91.5 fl (80-100); Mean Platelet Volume 10.6 fl (7.4-10.4); Platelet Count Result 55 k/mm3 (150-375); Red Blood Count 2.47 M/mm3 (4.2-5.4); Red Cell Distribution Width 15.8 % (11.5-14.5); White Blood Count 5.5 K/mm3 (4.5-10.0)
[2022-05-09] VITALS (33 sets, daily range): BP systolic 111–143; BP diastolic 48–67; PULSE 46–98; RESP 13–30; TEMP 36.3–37.8; O2SAT 90–98
[2022-05-09 00:20] LABS: Hematocrit 22.1 % (37.0-47.0); Hemoglobin 7.2 g/dL (12.0-15.0)
[2022-05-09 00:22] LABS: Glucose Point of Care 110 mg/dl (65-105)
[2022-05-09] MEDS: CENTRAL LINE FLUSH 10 ML IV PUSH ×3 (05:00→22:02)
[2022-05-09] MEDS: ALBUMIN HUMAN 25% 25 GM/100 ML 100 ML IVPB ×4 (05:00→23:35)
[2022-05-09 05:20] LABS: Glucose Point of Care 114 mg/dl (65-105)
[2022-05-09 05:26] LABS: Hematocrit 23.6 % (37.0-47.0); Hemoglobin 7.4 g/dL (12.0-15.0); Immature Platelet Fraction Pct 5.9 % (0.9-11.2); Mean Corpuscular HGB Conc 31.4 g/dl (32-36); Mean Corpuscular Hemoglobin 29.4 pg (26-34); Mean Corpuscular Volume 93.7 fl (80-100); Mean Platelet Volume 10.5 fl (7.4-10.4); Platelet Count Result 52 k/mm3 (150-375); Red Blood Count 2.52 M/mm3 (4.2-5.4); Red Cell Distribution Width 15.6 % (11.5-14.5); White Blood Count 5.9 K/mm3 (4.5-10.0)
[2022-05-09 05:32] LABS: INR 1.9; Prothrombin Time 21.3 Seconds (11.1-14.7)
[2022-05-09 05:38] LABS: Alanine Aminotransferase 21 U/L (6-35); Albumin Level 3.8 g/dL (3.5-5.1); Alkaline Phosphatase 46 U/L (38-126); Anion Gap 12 mmol/L (8-16); Aspartate Amino Transferase 40 U/L (14-36); Bilirubin,Total 2.1 mg/dL (0.2-1.3); Blood Urea Nitrogen 31 mg/dL (7-17); Calcium 8.1 mg/dL (8.4-10.2); Carbon Dioxide 25 mmol/L (22-30); Chloride 107 mmol/L (98-107); Estimated CRCL calculation 53 ml/min; Estimated Glomerular Filt Rate > 60; Glucose 111 mg/dL (65-110); Magnesium 2.2 mg/dL (1.6-2.3); Phosphorus 2.7 mg/dL (2.5-4.5); Potassium 3.5 mmol/L (3.4-5.0); Sodium 144 mmol/L (137-145)
[2022-05-09 05:39] LABS: Fibrinogen 115 mg/dl (215-510)
[2022-05-09 05:54] LABS: Alveolar/Arterial O2 Gradient 180.7 mmHg; Base Excess ABG -0.1 mEq/l (+/-2.0); Carboxyhemoglobin 0.3 % THb (0-2.0); Fractional Inspired Oxygen 40 %; HCO3 ABG 23.9 mEq/l (22.0-26.0); Methemoglobin ABG 0.6 %THb (0-1.5); Oxygen Content ABG 10.6 %vol (16.0-22.0); Oxygen Saturation ABG 93.1 % (95.0-100.0); Oxyhemoglobin 91.3 % THb (90.0-100.0); PCO2 ABG 35.9 mmHg (35.0-45.0); PO2 ABG 63.2 mmHg (80.0-100.0); PO2 FiO2 Ratio Arterial Blood 1.58 %; Reduced Hemoglobin 7.8 %THb (0-5.0); Total Hemoglobin 8.2 g/dL (12.0-18.0); pH ABG 7.441 (7.350-7.450)
[2022-05-09 05:58] LABS: Arterial Blood Gas PEEP 8 cmH2O; Arterial Blood Gas Tidal Volume 360 ml; Arterial Blood Gas Vent Mode CMV; Arterial Blood Gas Ventilator rate 18 /MIN; Device VENTILATOR; Modified Allen's Test Unable to perform; Site Drawn LEFT RADIAL
[2022-05-09] MEDS: metroNIDAZOLE 500 MG/ISO 100ML 500 MG/100 ML BAG 100 MG IVPB ×3 (06:13→21:58)
[2022-05-09] MEDS: PANTOPRAZOLE SODIUM IV 40 MG VIAL IV PUSH ×2 (08:05→22:02)
[2022-05-09] MEDS: MINERAL OIL/WHITE PETROLATUM OINTMENT 1 APPLIC EACH EYE ×2 (08:05→22:02)
[2022-05-09] MEDS: FUROSEMIDE INJ 40 MG/4 ML VIAL 20 MG IV PUSH (08:05)
--- NOTE | 2022-05-09 08:29 | PM.IMPN ---
Subjective Date/time seen: 05/09/22 08:29 Objective Data Vital Signs Vital Signs: Vital Signs - 24 hr 05/08/22 10:16 05/08/22 10:16 05/08/22 10:37 Temperature 98.6 F Pulse Rate 78 78 72 Respiratory Rate 18 18 18 Blood Pressure 101/49 L Pulse Oximetry 95 Oxygen Delivery Fraction of Inspired Oxygen 05/08/22 10:53 05/08/22 10:00 05/08/22 10:00 Temperature 98.7 F 98.7 F Pulse Rate 72 90 90 Respiratory Rate 18 16 Blood Pressure 102/44 L 128/46 L Pulse Oximetry 95 93 Oxygen Delivery Fraction of Inspired Oxygen 05/08/22 11:32 05/08/22 11:41 05/08/22 12:12 Temperature 98.7 F 98.8 F Pulse Rate 72 74 74 Respiratory Rate 18 18 Blood Pressure 98/54 L 103/49 L Pulse Oximetry 95 92 92 Oxygen Delivery Mechanical Ventilation Fraction of Inspired Oxygen 30 05/08/22 12:29 05/08/22 12:00 05/08/22 12:59 Temperature 98.9 F 98.9 F Pulse Rate 73 77 74 Respiratory Rate 18 18 Blood Pressure 97/52 L 99/56 L Pulse Oximetry 92 91 Oxygen Delivery Fraction of Inspired Oxygen 05/08/22 13:23 05/08/22 12:00 05/08/22 12:00 Temperature 98.9 F Pulse Rate 76 Respiratory Rate 18 Blood Pressure 99/54 L Pulse Oximetry 93 Oxygen Delivery Mechanical Ventilation Fraction of Inspired Oxygen 30 30 05/08/22 13:38 05/08/22 12:00 05/08/22 10:00 Temperature 99 F 98.8 F Pulse Rate 87 74 83 Respiratory Rate 18 18 18 Blood Pressure 98/51 L 106/54 L Pulse Oximetry 93 92 Oxygen Delivery Fraction of Inspired Oxygen 05/08/22 12:00 05/08/22 12:00 05/08/22 14:13 Temperature Pulse Rate 74 74 79 Respiratory Rate 18 18 Blood Pressure Pulse Oximetry 91 Oxygen Delivery Mechanical Ventilation Fraction of Inspired Oxygen 30 05/08/22 14:20 05/08/22 14:00 05/08/22 14:00 Temperature 99.0 F 99 F Pulse Rate 77 77 77 Respiratory Rate 18 18 Blood Pressure 99/49 L 98/46 L Pulse Oximetry 91 91 Oxygen Delivery Fraction of Inspired Oxygen 05/08/22 14:00 05/08/22 14:00 05/08/22 14:27 Temperature Pulse Rate 77 77 76 Respiratory Rate 18 18 18 Blood Pressure Pulse Oximetry Oxygen Delivery Fraction of Inspired Oxygen 05/08/22 16:12 05/08/22 16:18 05/08/22 16:00 Temperature Pulse Rate 76 78 78 Respiratory Rate 18 18 Blood Pressure Pulse Oximetry Oxygen Delivery Fraction of Inspired Oxygen 05/08/22 16:00 05/08/22 16:00 05/08/22 16:00 Temperature 99.1 F Pulse Rate 78 Respiratory Rate 18 Blood Pressure 96/54 L Pulse Oximetry 90 Oxygen Delivery Mechanical Ventilation Fraction of Inspired Oxygen 30 30 05/08/22 17:53 05/08/22 18:00 05/08/22 18:00 Temperature 99.5 F Pulse Rate 85 83 83 Respiratory Rate 18 Blood Pressure 112/54 L Pulse Oximetry 95 96 Oxygen Delivery Mechanical Ventilation Fraction of Inspired Oxygen 40 05/08/22 18:00 05/08/22 18:00 05/08/22 17:30 Temperature Pulse Rate 83 77 Respiratory Rate 18 18 Blood Pressure Pulse Oximetry Oxygen Delivery Fraction of Inspired Oxygen 40 05/08/22 20:00 05/08/22 20:00 05/08/22 20:00 Temperature 99.5 F Pulse Rate 83 Respiratory Rate 18 Blood Pressure 109/59 L Pulse Oximetry 100 Oxygen Delivery Mechanical Ventilation Fraction of Inspired Oxygen 40 40 05/08/22 20:00 05/08/22 20:00 05/08/22 20:00 Temperature Pulse Rate 79 86 83 Respiratory Rate 18 Blood Pressure Pulse Oximetry 97 Oxygen Delivery Mechanical Ventilation Fraction of Inspired Oxygen 40 05/08/22 20:00 05/08/22 22:00 05/08/22 22:00 Temperature 99.8 F H Pulse Rate 83 76 76 Respiratory Rate 18 18 Blood Pressure 99/55 L Pulse Oximetry 98 Oxygen Delivery Fraction of Inspired Oxygen 05/08/22 22:00 05/08/22 22:43 05/08/22 23:00 Temperature Pulse Rate 76 76 75 Respiratory Rate 18 18 Blood Pressure 119/52 L Pulse Oximetry Oxygen Delivery Fraction of Inspired
--- NOTE | 2022-05-09 11:18 | WPDGIPROGNO ---
Progress Note: A&P Assessment and Plan (1) Bloody vomitus: Code(s): K92.0 - Hematemesis Status: Acute Assessment and Plan: Shortly after arriving in the emergency room she had hematemesis. Subsequent emergency EGD 2 days ago revealed very large esophageal varices with active bleeding. Bands were placed on varices. Some would not it here for unknown reasons. Repeat EGD yesterday showed at least [address] A 3rd band was placed in the varicosity just below the previous site of bleeding. I should add that dark red blood was seen emanating up from t gastric lumen during that procedure. I am still unable to examine the stomach and duodenum the for fear of dislodging bands or friction causing more bleeding from her varices. Her hemoglobin dropped to 6.8 last night. After 1 unit of blood was 8.3 and now is 7.3. 05/09/2022 her hemoglobin is holding stable. For now at least bleeding has stopped. (2) Cirrhosis: Code(s): K74.60 - Unspecified cirrhosis of liver Status: Acute Assessment and Plan: She has been told that she has chronic liver disease due to JOHNSON. She is not sure that the term cirrhosis has actually been mentioned. I will start her on ceftriaxone. (3) Thrombocytopenia: Code(s): D69.6 - Thrombocytopenia, unspecified Status: Acute Assessment and Plan: Apparently her platelet count was rather low for a while. She is followed by lamp mechanic. Her platelet count is now 135 K 05/08/2022 her platelet count has gradually dropped. Is 41,000 at present. Will discuss platelet transfusion with deputy attorney general. 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 I suspect this is due to her chronic liver disease 05/08/2022 INR is higher. I will give her 2 units of FFP today 05/09/2022 despite FFP, INR remains at 1.9 when she begins bleeding, there would be no point in giving further plasma at this particular time due to a short half-life (5) Gallstones: Code(s): K80.20 - Calculus of gallbladder without cholecystitis without obstruction Status: Acute Assessment and Plan: she is asymptomatic from these (6) Anemia due to acute blood loss: Code(s): D62 - Acute posthemorrhagic anemia Status: Acute Assessment and Plan: since arriving here, her blood counts have dropped from 10.8-8.2. She will be receiving 1 unit of blood. Will check H and H every 4 hours. Endoscopy will be performed today on an emergency basis with 05/08/2022. She had received 4 units of blood through yesterday. When her blood counts dropped during the night she received 1 more unit and today her hemoglobin is up from 6.8 last night to 8.3 at present Plan She will continue to require close observation, management of complications of her varices including her coagulopathy. Subjective Date/time seen: 05/08/22? 08:01 At the time of her repeat endoscopy yesterday we found that at least 2 of the bands placed the night before were still in place.? There was dark red blood emanating up from the gastric lumen.? I elected to band 1 more accessible varicosity in the distal esophagus.? Her vital signs have remained stable but she did drop her blood counts during the night.? She has received 1 more unit of blood.? Her INR remains elevated, actually higher now at 1.9.? I am sure coagulopathy it contributes to the persistent bleeding. 05/09/22 11:18 no evidence of active bleeding at this time. Her hemoglobin remains stable at 7.4. She received plasma yesterday but despite that INR remains elevated at 1.9. We are hoping that she can get extubated today with the plan to perhaps stop octreotide tomorrow morning. Due to the varices virtually occluding the lumen, and risk of bands coming off of the varices, OG tube wo
--- NOTE | 2022-05-09 11:46 | PCFNICU ---
ICU Rounding Note: Pt current nutrition is NPO. Nutrition recommendation: Vital HP at 20 ml/hr advance by 10 ml q 4 hours to goal rate of 60 ml/hr. Last recorded weight is 88.1 kg, down from 90.6 kg on admit. Bowel Motility: +BM reported 05/08 Labs Reviewed:Glu 111, Hct 23.6,Hgb 7.4 Meds Noted: Protonix, Flagyl, Versed, Fentanyl. Skin: WNL Additional Notes: Patient remains on mechanical vent Day 3. Plans to decrease sedation and possible extubation. If patient is not extubated today I would recommend starting tube feeding of Vital High Protein at 20 ml/hr advance by 10 ml q 4 hours to goal rate of 60 ml/hr. Free water flush 30 ml q 4 hours. Agree with diet orders. Following daily in ICU rounds and reassessing every Saturday and Saturday.
[2022-05-09 12:27] LABS: Glucose Point of Care 111 mg/dl (65-105)
--- NOTE | 2022-05-09 12:59 | WPDINTPN ---
Progress Note: A&P Assessment and Plan (1) Esophageal varices with bleeding: Code(s): I85.01 - Esophageal varices with bleeding Status: Acute Assessment and Plan: Patient has cirrhosis and presented with upper GI bleed 05/06 EGD showed bleeding varices which were band ligated 4 units of PRBC and 2 units of FFP were given 05/07 repeat EGD showed blood in stomach and another varix was banded. Patient was given another 1 unit of blood overnight 05/08 2 units of FFP ordered Continue hemoglobin monitoring q.6 hours Monitor coags Continue IV Protonix Continue IV octreotide infusion - discussed with GI, wants to continue for an additional day Continue SBP prophylaxis with Rocephin Continue 25% albumin (2) Acute respiratory failure: Code(s): J96.00 - Acute respiratory failure, unspecified whether with hypoxia or hypercapnia Status: Acute Assessment and Plan: Continue full mechanical ventilation support to prevent hypoxemia/hypercarbia and end organ damage. ABG and vent settings reviewed Chest x-ray reviewed -patient given Lasix this morning -currently on CMV mode of ventilation, -discontinue sedation and switched to pressure control ventilation to evaluate for extubation P.r.n. 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 - Acquired coagulation factor deficiency Status: Acute Assessment and Plan: See above (5) Anemia due to acute blood loss: Code(s): D62 - Acute posthemorrhagic anemia Status: Acute Assessment and Plan: See above (6) Thrombocytopenia: Code(s): D69.6 - Thrombocytopenia, unspecified Status: Acute Assessment and Plan: Baseline unknown but likely secondary to cirrhosis and splenomegaly Platelets improving, continue to monitor (7) Enteritis: Code(s): K52.9 - Noninfective gastroenteritis and colitis, unspecified Status: Acute Assessment and Plan: CT showed some evidence of enteritis and possible small bowel intussusception Continue Flagyl with Rocephin C diff negative Plan DVT prophylaxis - SCD, no chemoprophylaxis due to GI bleed Stress ulcer prophylaxis -on IV PPI Nutrition - NPO. PICC line in place Discussed with patient's friend at bedside and patient's daughter on the phone and updated with patient's condition plan of care. They are aware that the sedation is off and patient is on a breathing trial evaluate for extubation. Patient is very somnolent at this time. Code Status - Full Code Total Critical Care Time - 34 minutes Due to a high probability of clinically significant, life threatening deterioration, the patient required my highest level of preparedness to intervene emergently and I personally spent this critical care time directly and personally managing the patient. This critical care time included obtaining a history; examining the patient; pulse oximetry; ordering and review of studies; arranging urgent treatment with development of a management plan; evaluation of patient's response to treatment; frequent reassessment; and discussions with other providers. It was exclusive of separately billable procedures and treating other patients and teaching time. Please see Assessment and Plan section and the rest of the note for further information on patient assessment and treatment Subjective Date/time seen: 05/09/22 12:59 Interval history: Reason for admission: GI bleed, esophageal varices status post banding, mitral blood products transfus
[2022-05-09 13:11] LABS: Hematocrit 22.4 % (37.0-47.0); Hemoglobin 7.3 g/dL (12.0-15.0); Immature Platelet Fraction Pct 5.7 % (0.9-11.2); Mean Corpuscular HGB Conc 32.6 g/dl (32-36); Mean Corpuscular Hemoglobin 30.5 pg (26-34); Mean Corpuscular Volume 93.7 fl (80-100); Platelet Count Result 52 k/mm3 (150-375); Red Blood Count 2.39 M/mm3 (4.2-5.4); Red Cell Distribution Width 15.6 % (11.5-14.5); White Blood Count 6.1 K/mm3 (4.5-10.0)
--- NOTE | 2022-05-09 15:11 | PCRCNOTE ---
Per Dr. Ohara's orders pt is to be left on Spont trial of 05/16 for daytime of 05/09/2022. At night time patient is to be switched to ASV mode and then re-evulate pt on 05/10/2022.
[2022-05-09 16:14] LABS: Glucose Point of Care 141 mg/dl (65-105)
[2022-05-09 17:43] LABS: Hematocrit 23.3 % (37.0-47.0); Hemoglobin 7.5 g/dL (12.0-15.0)
[2022-05-09] MEDS: dexmedeTOMIDine 400 MCG/100 ML 400 MCG/100 ML BAG IV CONT (18:31)
[2022-05-09 23:46] LABS: Glucose Point of Care 164 mg/dl (65-105)
[2022-05-10] VITALS (48 sets, daily range): BP systolic 108–140; BP diastolic 47–73; PULSE 42–121; RESP 11–27; TEMP 36.2–36.8; O2SAT 79–97
[2022-05-10 04:36] LABS: Basophils Percent Auto 0.2 % (0.2-1.2); Eosinophils Percent Auto 0.2 % (0-4.4); Hematocrit 22.9 % (37.0-47.0); Hemoglobin 7.5 g/dL (12.0-15.0); Immature Granulocyte Absolute 0.05 K/mm3 (0.00-0.031); Immature Granulocyte Percent A 1.2 % (0-0.5); Lymphocytes Absolute Auto 0.57 K/mm3 (0.9-3.2); Lymphocytes Percent Auto 13.9 % (18.3-44.2); Mean Corpuscular HGB Conc 32.8 g/dl (32-36); Mean Corpuscular Hemoglobin 30.4 pg (26-34); Mean Corpuscular Volume 92.7 fl (80-100); Mean Platelet Volume 11.4 fl (7.4-10.4); Monocytes Absolute Auto 0.2 K/mm3 (0.1-0.6); Monocytes Percent Auto 5.4 % (2.6-8.5); Neutrophils Absolute Auto 3.2 K/mm3 (1.3-6.7); Neutrophils Percent Auto 79.1 % (45.5-73.1); Platelet Count Result 50 k/mm3 (150-375); Red Blood Count 2.47 M/mm3 (4.2-5.4); Red Cell Distribution Width 15.4 % (11.5-14.5); White Blood Count 4.1 K/mm3 (4.5-10.0)
[2022-05-10 04:45] LABS: Alanine Aminotransferase 21 U/L (6-35); Albumin Level 3.9 g/dL (3.5-5.1); Alkaline Phosphatase 40 U/L (38-126); Ammonia 33 umol/L (9-30); Anion Gap 12 mmol/L (8-16); Aspartate Amino Transferase 39 U/L (14-36); Bilirubin,Total 1.9 mg/dL (0.2-1.3); Blood Urea Nitrogen 35 mg/dL (7-17); Calcium 8.5 mg/dL (8.4-10.2); Carbon Dioxide 23 mmol/L (22-30); Chloride 107 mmol/L (98-107); Estimated CRCL calculation 53 ml/min; Estimated Glomerular Filt Rate > 60; Glucose 157 mg/dL (65-110); Magnesium 2.2 mg/dL (1.6-2.3); Phosphorus 3.1 mg/dL (2.5-4.5); Potassium 3.6 mmol/L (3.4-5.0); Sodium 142 mmol/L (137-145)
[2022-05-10 04:52] LABS: INR 2.6
[2022-05-10 04:53] LABS: Partial Thromboplastin Time 42.7 SECONDS (22.3-36.8)
[2022-05-10] MEDS: CENTRAL LINE FLUSH 10 ML IV PUSH ×3 (04:54→21:02)
[2022-05-10] MEDS: ALBUMIN HUMAN 25% 25 GM/100 ML 100 ML IVPB ×4 (04:54→23:28)
[2022-05-10] MEDS: metroNIDAZOLE 500 MG/ISO 100ML 500 MG/100 ML BAG 100 MG IVPB (05:42)
[2022-05-10 05:56] LABS: Alveolar/Arterial O2 Gradient 188.7 mmHg; Base Excess ABG 0.5 mEq/l (+/-2.0); Carboxyhemoglobin 0.3 % THb (0-2.0); Fractional Inspired Oxygen 40 %; HCO3 ABG 23.2 mEq/l (22.0-26.0); Methemoglobin ABG 0.2 %THb (0-1.5); Oxygen Content ABG 10.8 %vol (16.0-22.0); Oxygen Saturation ABG 94.3 % (95.0-100.0); Oxyhemoglobin 91.7 % THb (90.0-100.0); PCO2 ABG 29.5 mmHg (35.0-45.0); PO2 ABG 62.6 mmHg (80.0-100.0); PO2 FiO2 Ratio Arterial Blood 1.56 %; Reduced Hemoglobin 7.8 %THb (0-5.0); Total Hemoglobin 8.3 g/dL (12.0-18.0)
[2022-05-10 05:58] LABS: pH ABG 7.513 (7.350-7.450)
[2022-05-10 05:59] LABS: Device VENTILATOR; Modified Allen's Test Unable to perform; Site Drawn LEFT RADIAL
[2022-05-10 06:00] LABS: Arterial Blood Gas PEEP 5 cmH2O; Arterial Blood Gas Vent Mode ASV
--- NOTE | 2022-05-10 07:33 | PM.IMPN ---
Progress Note: A&P Assessment and Plan (1) Esophageal varices with bleeding: Code(s): I85.01 - Esophageal varices with bleeding Status: Acute Assessment and Plan: Patient has cirrhosis and presented with upper GI bleed 05/06 EGD showed bleeding varices which were band ligated 4 units of PRBC and 2 units of FFP were given 05/07 repeat EGD showed blood in stomach and another varix was banded. Patient was given another 1 unit of blood overnight 05/08 2 units of FFP ordered Continue hemoglobin monitoring q.6 hours Monitor coags Continue IV Protonix Discussed with GI will discontinue IV octreotide infusion Continue SBP prophylaxis with Rocephin Continue 25% albumin (2) Acute respiratory failure: Code(s): J96.00 - Acute respiratory failure, unspecified whether with hypoxia or hypercapnia Status: Acute Assessment and Plan: Continue full mechanical ventilation support to prevent hypoxemia/hypercarbia and end organ damage. ABG and vent settings reviewed Chest x-ray reviewed -patient given Lasix this morning -patient off all sedation, is more awake this morning, placed patient on SBT and successfully extubated the patient P.r.n. 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 - Acquired coagulation factor deficiency Status: Acute Assessment and Plan: See above (5) Anemia due to acute blood loss: Code(s): D62 - Acute posthemorrhagic anemia Status: Acute Assessment and Plan: See above (6) Thrombocytopenia: Code(s): D69.6 - Thrombocytopenia, unspecified Status: Acute Assessment and Plan: Baseline unknown but likely secondary to cirrhosis and splenomegaly Platelets improving, continue to monitor (7) Enteritis: Code(s): K52.9 - Noninfective gastroenteritis and colitis, unspecified Status: Acute Assessment and Plan: CT showed some evidence of enteritis and possible small bowel intussusception EULALIO Nicholas, discussed with GI C diff negative Subjective Date/time seen: 05/10/22 07:33 Exam Narrative: General: Intubated, off sedation HEENT: Atraumatic, normocephalic, mucous membranes moist CV: Regular rate and rhythm, S1, S2 Lungs: Clear to auscultation bilaterally, no rales or crackles noted, no wheezes, good air entry Abdomen: Soft, nontender, nondistended Extremities: Normal to inspection Skin: No rashes noted, no lesions or wounds seen Objective Data Vital Signs Vital Signs: Vital Signs - 24 hr 05/09/22 08:00 05/09/22 08:00 05/09/22 08:00 Temperature Pulse Rate 89 Respiratory Rate Blood Pressure Pulse Oximetry 98 Oxygen Delivery Mechanical Ventilation Fraction of Inspired Oxygen 40 40 05/09/22 08:55 05/09/22 10:00 05/09/22 10:00 Temperature 99.9 F H Pulse Rate 72 72 72 Respiratory Rate 18 Blood Pressure 116/56 L Pulse Oximetry 96 95 Oxygen Delivery Mechanical Ventilation Fraction of Inspired Oxygen 40 05/09/22 08:00 05/09/22 10:00 05/09/22 08:00 Temperature Pulse Rate 80 73 80 Respiratory Rate 18 18 18 Blood Pressure Pulse Oximetry Oxygen Delivery Fraction of Inspired Oxygen 05/09/22 10:00 05/09/22 10:56 05/09/22 10:56 Temperature Pulse Rate 73 71 71 Respiratory Rate 18 18 18 Blood Pressure Pulse Oximetry Oxygen Delivery Fraction of Inspired Oxygen 05/09/22 11:01 05/09/22 11:45 05/09/22 11:46 Temperature Pulse Rate 70 90 91 Respiratory Rate 18 18 Blood Pressu
--- NOTE | 2022-05-10 07:54 | WPDGIPROGNO ---
Progress Note: A&P Assessment and Plan (1) Bloody vomitus: Code(s): K92.0 - Hematemesis Status: Acute Assessment and Plan: Shortly after arriving in the emergency room she had hematemesis. Subsequent emergency EGD 2 days ago revealed very large esophageal varices with active bleeding. Bands were placed on varices. Some would not it here for unknown reasons. Repeat EGD yesterday showed at least [address] A 3rd band was placed in the varicosity just below the previous site of bleeding. I should add that dark red blood was seen emanating up from t gastric lumen during that procedure. I am still unable to examine the stomach and duodenum the for fear of dislodging bands or friction causing more bleeding from her varices. Her hemoglobin dropped to 6.8 last night. After 1 unit of blood was 8.3 and now is 7.3. 05/09/2022 her hemoglobin is holding stable. For now at least bleeding has stopped. 05/10/2022 no further bleeding, hemoglobin stable at 7.5 (2) Cirrhosis: Code(s): K74.60 - Unspecified cirrhosis of liver Status: Acute Assessment and Plan: She has been told that she has chronic liver disease due to JOHNSON. She is not sure that the term cirrhosis has actually been mentioned. I will start her on ceftriaxone. (3) Thrombocytopenia: Code(s): D69.6 - Thrombocytopenia, unspecified Status: Acute Assessment and Plan: Apparently her platelet count was rather low for a while. She is followed by mechanism assembler. Her platelet count is now 135 K 05/08/2022 her platelet count has gradually dropped. Is 41,000 at present. Will discuss platelet transfusion with rn imaging. 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 I suspect this is due to her chronic liver disease 05/08/2022 INR is higher. I will give her 2 units of FFP today 05/09/2022 despite FFP, INR remains at 1.9 when she begins bleeding, there would be no point in giving further plasma at this particular time due to a short half-life 05/10/2022 INR has jumped to 2.6 for no apparent reason. (5) Gallstones: Code(s): K80.20 - Calculus of gallbladder without cholecystitis without obstruction Status: Acute Assessment and Plan: she is asymptomatic from these (6) Anemia due to acute blood loss: Code(s): D62 - Acute posthemorrhagic anemia Status: Acute Assessment and Plan: since arriving here, her blood counts have dropped from 10.8-8.2. She will be receiving 1 unit of blood. Will check H and H every 4 hours. Endoscopy will be performed today on an emergency basis with 05/08/2022. She had received 4 units of blood through yesterday. When her blood counts dropped during the night she received 1 more unit and today her hemoglobin is up from 6.8 last night to 8.3 at present (7) Acute respiratory failure: Code(s): J96.00 - Acute respiratory failure, unspecified whether with hypoxia or hypercapnia Status: Acute Assessment and Plan: She is being extubated today, hopefully. She has been weaned off sedation. Plan She will continue to require close observation, management of complications of her varices including her coagulopathy. Subjective Date/time seen: At the time of her repeat endoscopy yesterday we found that at least 2 of the bands placed the night before were still in place.? There was dark red blood emanating up from the gastric lumen.? I elected to band 1 more accessible varicosity in the distal esophagus.? Her vital signs have remained stable but she did drop her blood counts during the night.? She has received 1 more unit of blood.? Her INR remains elevated, actually higher now at 1.9.? I am sure coagulopathy it contributes to the persist
[2022-05-10] MEDS: FUROSEMIDE INJ 40 MG/4 ML VIAL IV PUSH (08:06)
[2022-05-10] MEDS: PANTOPRAZOLE SODIUM IV 40 MG VIAL IV PUSH ×2 (08:09→21:02)
[2022-05-10] MEDS: MINERAL OIL/WHITE PETROLATUM OINTMENT 1 APPLIC EACH EYE (08:10)
[2022-05-10 09:08] LABS: Glucose Point of Care 156 mg/dl (65-105)
[2022-05-10 10:50] LABS: Alveolar/Arterial O2 Gradient 166.7 mmHg; Fractional Inspired Oxygen 40 %; HCO3 ABG 26.1 mEq/l (22.0-26.0); Oxygen Content ABG 11.5 %vol (16.0-22.0); Oxygen Saturation ABG 95.4 % (95.0-100.0); PCO2 ABG 38.8 mmHg (35.0-45.0); PO2 ABG 73.9 mmHg (80.0-100.0); PO2 FiO2 Ratio Arterial Blood 1.85 %; Total Hemoglobin 8.7 g/dL (12.0-18.0); pH ABG 7.446 (7.350-7.450)
[2022-05-10 10:52] LABS: Arterial Blood Gas Vent Mode SPONTANEOUS; Device VENTILATOR; Modified Allen's Test Pass; Site Drawn LEFT RADIAL
[2022-05-10 10:53] LABS: Arterial Blood Gas PEEP 5 cmH2O; Arterial Blood Gas Pressure Support 8 cmH2O
--- NOTE | 2022-05-10 11:20 | PCFNICU ---
ICU Rounding Note: Pt current nutrition is NPO. Nutrition recommendation: advancing diet as tolerated per MD orders. Last recorded weight is 92 kg, up from 90.6 kg on admit. Bowel Motility: +Bm reported 05/09 Labs Reviewed:Glu 157, BUN 35, Hct 22.9,Hgb 7.5 Meds Noted:Rocephin, Protonix, Flagyl Skin:WNL Additional Notes: Patient has been extubated. Plans for diet orders of full liquids with diet supplements of Ensure Compact BID, providing an additional 220 kcals and 9 gms protein. Following daily in ICU rounds and reassessing every 5 days.
--- NOTE | 2022-05-10 12:17 | WPDINTPN ---
Progress Note: A&P Assessment and Plan (1) Esophageal varices with bleeding: Code(s): I85.01 - Esophageal varices with bleeding Status: Acute Assessment and Plan: Patient has cirrhosis and presented with upper GI bleed 05/06 EGD showed bleeding varices which were band ligated 4 units of PRBC and 2 units of FFP were given 05/07 repeat EGD showed blood in stomach and another varix was banded. Patient was given another 1 unit of blood overnight 05/08 2 units of FFP ordered Continue hemoglobin monitoring q.6 hours Monitor coags Continue IV Protonix Discussed with GI will discontinue IV octreotide infusion Continue SBP prophylaxis with Rocephin Continue 25% albumin (2) Acute respiratory failure: Code(s): J96.00 - Acute respiratory failure, unspecified whether with hypoxia or hypercapnia Status: Acute Assessment and Plan: Continue full mechanical ventilation support to prevent hypoxemia/hypercarbia and end organ damage. ABG and vent settings reviewed Chest x-ray reviewed -patient given Lasix this morning -patient off all sedation, is more awake this morning, placed patient on SBT and successfully extubated the patient P.r.n. 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 - Acquired coagulation factor deficiency Status: Acute Assessment and Plan: See above (5) Anemia due to acute blood loss: Code(s): D62 - Acute posthemorrhagic anemia Status: Acute Assessment and Plan: See above (6) Thrombocytopenia: Code(s): D69.6 - Thrombocytopenia, unspecified Status: Acute Assessment and Plan: Baseline unknown but likely secondary to cirrhosis and splenomegaly Platelets improving, continue to monitor (7) Enteritis: Code(s): K52.9 - Noninfective gastroenteritis and colitis, unspecified Status: Acute Assessment and Plan: CT showed some evidence of enteritis and possible small bowel intussusception DC Flagyl, discussed with GI C diff negative Plan DVT prophylaxis - SCD, no chemoprophylaxis due to GI bleed Stress ulcer prophylaxis -on IV PPI Nutrition - NPO. PICC line in place Discussed with patient's friend at bedside and patient's daughter on the phone and updated with patient's condition plan of care. They are aware that the sedation is off and patient is on a breathing trial evaluate for extubation. Code Status - Full Code Total Critical Care Time - 35 minutes Due to a high probability of clinically significant, life threatening deterioration, the patient required my highest level of preparedness to intervene emergently and I personally spent this critical care time directly and personally managing the patient. This critical care time included obtaining a history; examining the patient; pulse oximetry; ordering and review of studies; arranging urgent treatment with development of a management plan; evaluation of patient's response to treatment; frequent reassessment; and discussions with other providers. It was exclusive of separately billable procedures and treating other patients and teaching time. Please see Assessment and Plan section and the rest of the note for further information on patient assessment and treatment Subjective Date/time seen: 05/10/22 12:17 Interval history: Reason for admission: GI bleed, esophageal varices status post banding, mitral blood products transfusion, shock, cirrhosis, thrombocytopenia 05/10/2022: Patient seen and examined the ICUmag[facility]
[2022-05-10 12:42] LABS: Glucose Point of Care 132 mg/dl (65-105)
[2022-05-10 17:13] LABS: Glucose Point of Care 133 mg/dl (65-105)
[2022-05-10 23:52] LABS: Glucose Point of Care 127 mg/dl (65-105)
[2022-05-11] VITALS (83 sets, daily range): BP systolic 77–157; BP diastolic 51–79; PULSE 71–119; RESP 14–28; TEMP 36.9–37.1; O2SAT 85–98; BMI 33.7
[2022-05-11] MEDS: ALBUTEROL SULFATE NEB 2.5 MG/3 ML INH INHALATION ×3 (00:20→20:48)
--- NOTE | 2022-05-11 01:22 | PC.NURSE ---
Patient requiring more oxygen, Stat chest xray per Dr. Sorensen. Stop Albumin, give 40mg Lasix IV push x1 now.
[2022-05-11] MEDS: FUROSEMIDE INJ 40 MG/4 ML VIAL IV PUSH (01:34)
[2022-05-11 04:28] LABS: Hematocrit 23.4 % (37.0-47.0); Hemoglobin 7.6 g/dL (12.0-15.0); Mean Corpuscular HGB Conc 32.5 g/dl (32-36); Mean Corpuscular Hemoglobin 30.6 pg (26-34); Mean Corpuscular Volume 94.4 fl (80-100); Mean Platelet Volume 10.6 fl (7.4-10.4); Platelet Count Result 58 k/mm3 (150-375); Red Blood Count 2.48 M/mm3 (4.2-5.4); White Blood Count 9.1 K/mm3 (4.5-10.0)
[2022-05-11 04:40] LABS: Alanine Aminotransferase 19 U/L (6-35); Albumin Level 4.8 g/dL (3.5-5.1); Alkaline Phosphatase 42 U/L (38-126); Anion Gap 18 mmol/L (8-16); Aspartate Amino Transferase 34 U/L (14-36); Bilirubin,Total 1.6 mg/dL (0.2-1.3); Blood Urea Nitrogen 38 mg/dL (7-17); Carbon Dioxide 26 mmol/L (22-30); Chloride 104 mmol/L (98-107); Estimated CRCL calculation 45 ml/min; Estimated Glomerular Filt Rate 49; Glucose 131 mg/dL (65-110); Magnesium 2.2 mg/dL (1.6-2.3); Phosphorus 3.3 mg/dL (2.5-4.5); Potassium 3.5 mmol/L (3.4-5.0); Sodium 148 mmol/L (137-145)
[2022-05-11] MEDS: CENTRAL LINE FLUSH 10 ML IV PUSH ×3 (05:08→19:44)
[2022-05-11 05:15] LABS: Alveolar/Arterial O2 Gradient 331.9 mmHg; Base Excess ABG 2.7 mEq/l (+/-2.0); Carboxyhemoglobin 0.2 % THb (0-2.0); Fractional Inspired Oxygen 60 %; HCO3 ABG 26.6 mEq/l (22.0-26.0); Methemoglobin ABG 0.5 %THb (0-1.5); Oxygen Content ABG 10.5 %vol (16.0-22.0); Oxygen Saturation ABG 89.8 % (95.0-100.0); PCO2 ABG 38.2 mmHg (35.0-45.0); PO2 ABG 53.9 mmHg (80.0-100.0); Reduced Hemoglobin 11.6 %THb (0-5.0); Total Hemoglobin 8.5 g/dL (12.0-18.0); pH ABG 7.461 (7.350-7.450)
[2022-05-11 05:16] LABS: Oxyhemoglobin 87.7 % THb (90.0-100.0)
[2022-05-11 05:17] LABS: Site Drawn LEFT RADIAL
[2022-05-11 05:18] LABS: Device HIGH FLOW NASAL CANN; Modified Allen's Test Pass
--- NOTE | 2022-05-11 07:30 | PM.IMPN ---
Progress Note: A&P Assessment and Plan (1) Esophageal varices with bleeding: Code(s): I85.01 - Esophageal varices with bleeding Status: Acute Assessment and Plan: Patient has cirrhosis and presented with upper GI bleed 05/06 EGD showed bleeding varices which were band ligated 4 units of PRBC and 2 units of FFP were given 05/07 repeat EGD showed blood in stomach and another varix was banded. Patient was given another 1 unit of blood overnight 05/08 2 units of FFP ordered Continue hemoglobin monitoring q.6 hours Monitor coags Continue IV Protonix Discussed with GI will discontinue IV octreotide infusion Continue SBP prophylaxis with Rocephin (2) Acute respiratory failure: Code(s): J96.00 - Acute respiratory failure, unspecified whether with hypoxia or hypercapnia Status: Acute Assessment and Plan: On 3 L nasal cannula, doing well Extubated May 10, 2022 (3) Liver cirrhosis secondary to nonalcoholic steatohepatitis (JOHNSON): Code(s): K75.81 - Nonalcoholic steatohepatitis (JOHNSON); K74.60 - Unspecified cirrhosis of liver Status: Acute Assessment and Plan: Patient has received a total of 5 units of packed RBCs, 3 units of FFP and 1 unit of platelets Monitor liver enzymes, INR 05/08 ammonia level within normal limits Patient has been given vitamin K (4) 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: Code(s): D68.4 - Acquired coagulation factor deficiency Status: Acute Assessment and Plan: See above (5) Anemia due to acute blood loss: Code(s): D62 - Acute posthemorrhagic anemia Status: Acute Assessment and Plan: See above (6) Thrombocytopenia: Code(s): D69.6 - Thrombocytopenia, unspecified Status: Acute Assessment and Plan: Baseline unknown but likely secondary to cirrhosis and splenomegaly Platelets improving, continue to monitor (7) Enteritis: Code(s): K52.9 - Noninfective gastroenteritis and colitis, unspecified Status: Acute Assessment and Plan: CT showed some evidence of enteritis and possible small bowel intussusception DC Flagyl, discussed with GI C diff negative Plan DVT prophylaxis with SCDs GI prophylaxis with PPI Code status full code Subjective Date/time seen: 05/11/22 07:30 Interval history: Extubated off pressors, doing well on 3 L nasal cannula. No overnight events noted. No chest pain or shortness of breath. No nausea, vomiting or diarrhea. No fevers or chills. Review of Systems Review of Systems: 12 point review of systems was assessed and was negative except as noted in the HPI Exam Narrative: General: Extubated, comfortable on 3 L nasal cannula HEENT: Atraumatic, normocephalic, mucous membranes moist CV: Regular rate and rhythm, S1, S2 Lungs: Clear to auscultation bilaterally, no rales or crackles noted, no wheezes, good air entry Abdomen: Soft, nontender, nondistended Extremities: Normal to inspection Skin: No rashes noted, no lesions or wounds seen Objective Data Vital Signs Vital Signs: Vital Signs - 24 hr 05/10/22 08:00 05/10/22 08:00 05/10/22 08:00 Temperature Pulse Rate 75 Respiratory Rate Blood Pressure Pulse Oximetry 96 Oxygen Delivery Mechanical Ventilation Oxygen Flow Rate Fraction of Inspired Oxygen 40 40 05/10/22 08:10 05/10/22 08:40 05/10/22 08:00 Temperature 97.4 F L Pulse Rate 71 68 74 Respiratory Rate 11 L Blood Pressure 138/64 Pulse Oximetry 97 97 96 Oxygen Delivery Mechanical Ventilation Mechanical Ventilation Oxygen Flow Rate Fraction of Inspired Oxygen 40 40 05/10/22 10:00 05/10/22 10:00 05/10/22 11:05 Temperature 97.7 F Pulse Rate 75 77 Respiratory Rate 12 Blood Pressure 126/60 Pulse Oximetry 95 92 Oxygen Delivery Nasal Cannula Oxygen Flow Rate 3 Fraction of Inspired Oxygen 05/10/22 11:00 05/10/22 12:00 05/10/22 12:00 Temperature
[2022-05-11] MEDS: PHYTONADIONE ADULT INJ 10 MG in DEXTROSE 5% IN WATER 50 ML 100 MG IVPB (07:41)
[2022-05-11] MEDS: PANTOPRAZOLE SODIUM IV 40 MG VIAL IV PUSH ×2 (07:49→19:43)
[2022-05-11] MEDS: ONDANSETRON INJ 4 MG/2 ML VIAL IV PUSH ×2 (08:01→14:25)
[2022-05-11 08:18] LABS: INR 3.5
--- NOTE | 2022-05-11 08:55 | WPDINTPN ---
Progress Note: A&P Assessment and Plan (1) Esophageal varices with bleeding: Code(s): I85.01 - Esophageal varices with bleeding Status: Acute Assessment and Plan: Patient has cirrhosis and presented with upper GI bleed 05/06 EGD showed bleeding varices which were band ligated 4 units of PRBC and 2 units of FFP were given 05/07 repeat EGD showed blood in stomach and another varix was banded. Patient was given another 1 unit of blood overnight 05/08 2 units of FFP ordered Continue hemoglobin monitoring q.6 hours Monitor coags Continue IV Protonix Discussed with GI will discontinue IV octreotide infusion Continue SBP prophylaxis with Rocephin DC albumin (2) Acute respiratory failure: Code(s): J96.00 - Acute respiratory failure, unspecified whether with hypoxia or hypercapnia Status: Acute Assessment and Plan: Continue full mechanical ventilation support to prevent hypoxemia/hypercarbia and end organ damage. -successfully extubated on 05/01/202205/11 Chest x-ray: Unchanged diffuse bilateral airspace disease, most likely edema. Pneumonia less favored.:? Small pleural effusions. -patient placed on Airvo/high-flow therapy as she has been requiring more oxygen overnight -continue bronchodilators -encourage incentive spirometry -sit up in chair, increase activity -will diurese patient today (3) Liver cirrhosis secondary to nonalcoholic steatohepatitis (JOHNSON): Code(s): K75.81 - Nonalcoholic steatohepatitis (JOHNSON); K74.60 - Unspecified cirrhosis of liver Status: Acute Assessment and Plan: Patient has received a total of 5 units of packed RBCs, 3 units of FFP and 1 unit of platelets Monitor liver enzymes, INR 05/08 ammonia level within normal limits Patient has been given vitamin K (4) 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: Code(s): D68.4 - Acquired coagulation factor deficiency Status: Acute Assessment and Plan: INR is elevated -will give vitamin K (5) Anemia due to acute blood loss: Code(s): D62 - Acute posthemorrhagic anemia Status: Acute Assessment and Plan: Hemoglobin remained stable, continue to monitor (6) Thrombocytopenia: Code(s): D69.6 - Thrombocytopenia, unspecified Status: Acute Assessment and Plan: Baseline unknown but likely secondary to cirrhosis and splenomegaly Platelets improving, continue to monitor (7) Enteritis: Code(s): K52.9 - Noninfective gastroenteritis and colitis, unspecified Status: Acute Assessment and Plan: CT showed some evidence of enteritis and possible small bowel intussusception DC yl, discussed with GI C diff negative Plan DVT prophylaxis - SCD, no chemoprophylaxis due to GI bleed Stress ulcer prophylaxis -on IV PPI Nutrition - NPO. PICC line in place Discussed with patient's daughter, Chandni, updated her with patient's condition and plan of care. I did explain to her regarding pulmonary edema that via given her diuretics. I also updated the daughter that the patient's blood counts have been stable. I answered all questions Code Status - Full Code Total Critical Care Time - 34 minutes Due to a high probability of clinically significant, life threatening deterioration, the patient required my highest level of preparedness to intervene emergently and I personally spent this critical care time directly and personally managing the patient. This critical care time included obtaining a history; examining the patient; pulse oximetry; ordering and review of studies; arranging urgent treatment with development of a management plan; evaluation of patient's response to treatment; frequent reassessment; and discussions with other providers. It was exclusive of separately billable procedures and treating other patients and teaching time. Please see Assessment and Plan section and the rest of the note for further information on patient assessment and tr
[2022-05-11] MEDS: BUMETANIDE INJ 1 MG/4 ML VIAL IV PUSH (10:06)
--- NOTE | 2022-05-11 11:10 | PCNFU ---
Nutrition Follow-Up Complete: Goal: Pt current nutrition is . Nutrition recommendation: Last recorded weight is 86.5 kg. Bowel Motility: Labs Reviewed: Meds Noted: Skin: Additional Notes:
[2022-05-11] MEDS: METOCLOPRAMIDE HCL INJ 10 MG/2 ML VIAL 5 MG IV PUSH (11:21)
[2022-05-11 11:27] LABS: Glucose Point of Care 141 mg/dl (65-105)
--- NOTE | 2022-05-11 12:21 | WPDGIPROGNO ---
Progress Note: A&P Assessment and Plan (1) Bloody vomitus: Code(s): K92.0 - Hematemesis Status: Acute Assessment and Plan: Shortly after arriving in the emergency room she had hematemesis. Subsequent emergency EGD 2 days ago revealed very large esophageal varices with active bleeding. Bands were placed on varices. Some would not it here for unknown reasons. Repeat EGD yesterday showed at least [address] A 3rd band was placed in the varicosity just below the previous site of bleeding. I should add that dark red blood was seen emanating up from t gastric lumen during that procedure. I am still unable to examine the stomach and duodenum the for fear of dislodging bands or friction causing more bleeding from her varices. Her hemoglobin dropped to 6.8 last night. After 1 unit of blood was 8.3 and now is 7.3. 05/09/2022 her hemoglobin is holding stable. For now at least bleeding has stopped. 05/10/2022 no further bleeding, hemoglobin stable at 7.5 04/14/2022 we will try her on a liquid diet. (2) Cirrhosis: Code(s): K74.60 - Unspecified cirrhosis of liver Status: Acute Assessment and Plan: She has been told that she has chronic liver disease due to JOHNSON. She is not sure that the term cirrhosis has actually been mentioned. I will start her on ceftriaxone. the increasing INR is worrisome for imminent hepatic failure, although bilirubin is normal. I will check a blood ammonia level. We do not know the exact cause of her liver disease. She had been told that it was due to JOHNSON, at this point it does not really matter what the etiology was because it is end-stage. (3) Thrombocytopenia: Code(s): D69.6 - Thrombocytopenia, unspecified Status: Acute Assessment and Plan: Apparently her platelet count was rather low for a while. She is followed by quality control expert. Her platelet count is now 135 K 05/08/2022 her platelet count has gradually dropped. Is 41,000 at present. Will discuss platelet transfusion with water well driller. 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 I suspect this is due to her chronic liver disease 05/08/2022 INR is higher. I will give her 2 units of FFP today 05/09/2022 despite FFP, INR remains at 1.9 when she begins bleeding, there would be no point in giving further plasma at this particular time due to a short half-life 05/10/2022 INR has jumped to 2.6 for no apparent reason. 05/11/2022 INR is now 3.5. This is quite worrisome. I will check a blood ammonia level. We need to be concerned about hepatic failure, although bilirubin is not increasing (5) Gallstones: Code(s): K80.20 - Calculus of gallbladder without cholecystitis without obstruction Status: Acute Assessment and Plan: she is asymptomatic from these (6) Anemia due to acute blood loss: Code(s): D62 - Acute posthemorrhagic anemia Status: Acute Assessment and Plan: since arriving here, her blood counts have dropped from 10.8-8.2. She will be receiving 1 unit of blood. Will check H and H every 4 hours. Endoscopy will be performed today on an emergency basis with 05/08/2022. She had received 4 units of blood through yesterday. When her blood counts dropped during the night she received 1 more unit and today her hemoglobin is up from 6.8 last night to 8.3 at present 05/11/2022 hemoglobin remains stable, off octreotide (7) Acute respiratory failure: Code(s): J96.00 - Acute respiratory failure, unspecified whether with hypoxia or hypercapnia Status: Acute Assessment and Plan: she has been successfully extubated She has been weaned off sedation. Plan She will continue to require close observation, management
[2022-05-11 13:40] LABS: Ammonia < 9 umol/L (9-30)
--- NOTE | 2022-05-11 14:09 | PCOTNOTE ---
Attempted to see patient for OT evaluation. Patient just evaluated by PT and reports being too tired to sit up again. Will continue to attempt.
[2022-05-11] MEDS: PROMETHAZINE HCL 25 MG SUPP.RECT RECTAL (15:53)
[2022-05-11] MEDS: TOLNAFTATE 1% POWDER 45 GM BTL 1 APPLIC TOPICAL (20:00)
[2022-05-11 23:25] LABS: Glucose Point of Care 154 mg/dl (65-105)
[2022-05-12] VITALS (96 sets, daily range): BP systolic 122–161; BP diastolic 54–81; PULSE 69–96; RESP 6–26; TEMP 36.6–37.2; O2SAT 89–100
[2022-05-12] MEDS: ALBUTEROL SULFATE NEB 2.5 MG/3 ML INH INHALATION ×4 (02:46→20:40)
[2022-05-12] MEDS: CENTRAL LINE FLUSH 10 ML IV PUSH ×3 (05:38→21:32)
[2022-05-12 05:41] LABS: Hematocrit 24.3 % (37.0-47.0); Hemoglobin 7.7 g/dL (12.0-15.0); Immature Platelet Fraction Pct 5.5 % (0.9-11.2); Mean Corpuscular HGB Conc 31.7 g/dl (32-36); Mean Corpuscular Hemoglobin 30.1 pg (26-34); Mean Corpuscular Volume 94.9 fl (80-100); Mean Platelet Volume 11.1 fl (7.4-10.4); Platelet Count Result 62 k/mm3 (150-375); Red Blood Count 2.56 M/mm3 (4.2-5.4); Red Cell Distribution Width 16.9 % (11.5-14.5); White Blood Count 7.5 K/mm3 (4.5-10.0)
[2022-05-12 05:42] LABS: Glucose Point of Care 138 mg/dl (65-105)
[2022-05-12 05:44] LABS: Alveolar/Arterial O2 Gradient 316.6 mmHg; Base Excess ABG 4.5 mEq/l (+/-2.0); Carboxyhemoglobin 0.3 % THb (0-2.0); Fractional Inspired Oxygen 63 %; HCO3 ABG 28.3 mEq/l (22.0-26.0); Methemoglobin ABG 0.3 %THb (0-1.5); Oxygen Saturation ABG 97.4 % (95.0-100.0); Oxyhemoglobin 95.6 % THb (90.0-100.0); PCO2 ABG 38.9 mmHg (35.0-45.0); PO2 ABG 90.1 mmHg (80.0-100.0); PO2 FiO2 Ratio Arterial Blood 1.43 %; Reduced Hemoglobin 3.8 %THb (0-5.0); Total Hemoglobin 8.8 g/dL (12.0-18.0)
[2022-05-12 05:53] LABS: INR 2.7; Prothrombin Time 27.4 Seconds (11.1-14.7)
[2022-05-12 05:57] LABS: Device HIGH FLOW THERAPY; Modified Allen's Test Pass; Site Drawn LEFT RADIAL
[2022-05-12 06:03] LABS: Alanine Aminotransferase 19 U/L (6-35); Albumin Level 4.1 g/dL (3.5-5.1); Alkaline Phosphatase 45 U/L (38-126); Anion Gap 11 mmol/L (8-16); Aspartate Amino Transferase 34 U/L (14-36); Bilirubin,Total 1.8 mg/dL (0.2-1.3); Blood Urea Nitrogen 34 mg/dL (7-17); Calcium 8.7 mg/dL (8.4-10.2); Carbon Dioxide 28 mmol/L (22-30); Chloride 105 mmol/L (98-107); Estimated CRCL calculation 46 ml/min; Estimated Glomerular Filt Rate 55; Glucose 124 mg/dL (65-110); Phosphorus 2.6 mg/dL (2.5-4.5); Potassium 3.1 mmol/L (3.4-5.0); Sodium 144 mmol/L (137-145)
--- NOTE | 2022-05-12 08:18 | PM.IMPN ---
Progress Note: A&P Assessment and Plan (1) Esophageal varices with bleeding: Code(s): I85.01 - Esophageal varices with bleeding Status: Acute Assessment and Plan: End-stage cirrhosis of unknown etiology with GI bleed 05/06 EGD showed bleeding varices which were band ligated 4 units of PRBC and 2 units of FFP were given 05/07 Repeat EGD showed blood in stomach and another varix was banded. Patient was given another 1 unit of blood overnight 05/08 2 units of FFP ordered Continue hemoglobin monitoring q.6 hours Monitor coags Continue IV Protonix SBP prophylaxis with Rocephin, today is day 7, would anticipate d/c abx today, will defer final decision to GI (2) Acute respiratory failure: Code(s): J96.00 - Acute respiratory failure, unspecified whether with hypoxia or hypercapnia Status: Acute Assessment and Plan: On hi sindhu today Extubated May 10, 2022 (3) Liver cirrhosis secondary to nonalcoholic steatohepatitis (JOHNSON): Code(s): K75.81 - Nonalcoholic steatohepatitis (JOHNSON); K74.60 - Unspecified cirrhosis of liver Status: Acute Assessment and Plan: End-stage liver disease, sees hepatology at [facility] in [place] Patient has received a total of 5 units of packed RBCs, 3 units of FFP and 1 unit of platelets Monitor liver enzymes, INR 05/08 ammonia level within normal limits Patient has been given vitamin K (4) 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: Code(s): D68.4 - Acquired coagulation factor deficiency Status: Acute Assessment and Plan: See above (5) Anemia due to acute blood loss: Code(s): D62 - Acute posthemorrhagic anemia Status: Acute Assessment and Plan: See above (6) Thrombocytopenia: Code(s): D69.6 - Thrombocytopenia, unspecified Status: Acute Assessment and Plan: Baseline unknown but likely secondary to cirrhosis and splenomegaly Platelets fluctuating between 50-60s (7) Enteritis: Code(s): K52.9 - Noninfective gastroenteritis and colitis, unspecified Status: Acute Assessment and Plan: CT showed some evidence of enteritis and possible small bowel intussusception DC Flagyl, discussed with GI C diff negative (8) Hypokalemia: Code(s): E87.6 - Hypokalemia Status: Acute Assessment and Plan: 3.1 today, replete and recheck tomorrow Plan DVT prophylaxis with SCDs GI prophylaxis with PPI Code status full code Subjective Date/time seen: 05/12/22 08:18 Interval history: No overnight events noted. No chest pain or shortness of breath. No nausea, vomiting or diarrhea. No fevers or chills. Review of Systems Review of Systems: 12 point review of systems was assessed and was negative except as noted in the HPI Exam Narrative: General: Extubated, comfortable on nasal cannula HEENT: Atraumatic, normocephalic, mucous membranes moist CV: Regular rate and rhythm, S1, S2 Lungs: Clear to auscultation bilaterally, no rales or crackles noted, no wheezes, good air entry Abdomen: Soft, nontender, nondistended Extremities: Normal to inspection Skin: No rashes noted, no lesions or wounds seen Objective Data Vital Signs Vital Signs: Vital Signs - 24 hr 05/11/22 08:30 05/11/22 08:45 05/11/22 09:00 Temperature Pulse Rate 77 85 80 Respiratory Rate 19 18 22 H Blood Pressure Pulse Oximetry 96 95 94 Oxygen Delivery Oxygen Flow Rate Fraction of Inspired Oxygen 05/11/22 09:01 05/11/22 09:15 05/11/22 09:30 Temperature Pulse Rate 79 79 81 Respiratory Rate 20 21 H 20 Blood Pressure 138/73 Pulse Oximetry 95 95 94 Oxygen Delivery Oxygen Flow Rate Fraction of Inspired Oxygen 05/11/22 09:45 05/11/22 10:00 05/11/22 10:01 Temperature Pulse Rate 90 79 78 Respiratory Rate 17 19 20 Blood Pressure 148/70 H Pulse Oximetry 97 97 96 Oxygen Delivery Oxygen Flow Rate Fraction of Inspired Oxygen
[2022-05-12] MEDS: PHYTONADIONE ADULT INJ 10 MG in DEXTROSE 5% IN WATER 50 ML 100 MG IVPB (09:52)
[2022-05-12] MEDS: BUMETANIDE INJ 1 MG/4 ML VIAL IV PUSH (09:52)
[2022-05-12] MEDS: PANTOPRAZOLE SODIUM IV 40 MG VIAL IV PUSH ×2 (09:53→21:32)
[2022-05-12] MEDS: TOLNAFTATE 1% POWDER 45 GM BTL 1 APPLIC TOPICAL ×2 (09:53→21:33)
[2022-05-12] MEDS: POTASSIUM CHLORIDE 20 MEQ TABLET 40 MEQ PO (10:23)
[2022-05-12] MEDS: carvediloL 6.25 MG TABLET PO ×2 (10:48→21:32)
[2022-05-12 13:01] LABS: Glucose Point of Care 104 mg/dl (65-105)
--- NOTE | 2022-05-12 13:22 | WPDGIPROGNO ---
Progress Note: A&P Assessment and Plan (1) Esophageal varices with bleeding: Code(s): I85.01 - Esophageal varices with bleeding Status: Acute Assessment and Plan: End-stage cirrhosis of unknown etiology with GI bleed 05/06 EGD showed bleeding varices which were band ligated 4 units of PRBC and 2 units of FFP were given 05/07 Repeat EGD showed blood in stomach and another varix was banded. Patient was given another 1 unit of blood overnight 05/08 2 units of FFP ordered Continue hemoglobin monitoring q.6 hours Monitor coags Continue IV Protonix SBP prophylaxis with Rocephin, today is day 7, would anticipate d/c abx today, will defer final decision to GI 05/12/2022 I will start her on a nonselective beta-rich to reduce portal venous pressure. I explained to her and her family that this will help but not necessarily prevent further bleeding. Ideally, we would like to see her resting pulse reduced by about 25%. She had been in the 80s and 90s. I will strive to get her pulse at or around 70. She may need a higher dose of carvedilol but we will see how she does with the current dose, 6.25 mg b.i.d. the patient her daughter try to remember the name of her upper cutter in [place]. I had suggested that they try to make an appointment for her to be seen within the next couple weeks, after discharge (2) Acute respiratory failure: Code(s): J96.00 - Acute respiratory failure, unspecified whether with hypoxia or hypercapnia Status: Acute Assessment and Plan: On hi sindhu today Extubated May 10, 2022 05/12/2022 she is doing well with no tachypnea. (3) Liver cirrhosis secondary to nonalcoholic steatohepatitis (JOHNSON): Code(s): K75.81 - Nonalcoholic steatohepatitis (JOHNSON); K74.60 - Unspecified cirrhosis of liver Status: Acute Assessment and Plan: Patient has received a total of 5 units of packed RBCs, 3 units of FFP and 1 unit of platelets Monitor liver enzymes, INR 05/08 ammonia level within normal limits Patient has been given vitamin K 05/12/2020 to she states that they never did obtain an explanation for the etiology of her cirrhosis. She states that it was called fatty liver until she saw upper cutter 2 told her that she does indeed have cirrhosis. She states that she has never been much of a drinker and believes that her specialist as done test to rule out other causes. . 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 We definitely need to try to lower it more. I will start her on a daily dose of oral vitamin K (5) Anemia due to acute blood loss: Code(s): D62 - Acute posthemorrhagic anemia Status: Acute Assessment and Plan: 05/12/22. Hemoglobin is stable at 7.7. (6) Thrombocytopenia: Code(s): D69.6 - Thrombocytopenia, unspecified Status: Acute Assessment and Plan: Baseline unknown but likely secondary to cirrhosis and splenomegaly Platelets fluctuating between 50-60s Today platelet count is up to 62,000. (7) Enteritis: Code(s): K52.9 - Noninfective gastroenteritis and colitis, unspecified Status: Acute Assessment and Plan: CT showed some evidence of enteritis and possible small bowel intussusception DC Cristopher, discussed with GI C diff negative 05/12/2022. The call of enteritis which we commonly see on CT scans done for various reasons, is not supported by her clinical findings. (8) Hypokalemia: Code(s): E87.6 - Hypokalemia Status: Acute Assessment and Plan: 3.1 today, replete and recheck tomorrow (9) Portal hypertension: Code(s): K76.6 - Portal hypertension Status: Acute Assessment and Plan: the splenomegaly causing thrombocytopenia and the esophagea
--- NOTE | 2022-05-12 14:12 | WPDINTPN ---
Progress Note: A&P Assessment and Plan (1) Esophageal varices with bleeding: Code(s): I85.01 - Esophageal varices with bleeding Status: Acute Assessment and Plan: Patient has cirrhosis and presented with upper GI bleed 05/06 EGD showed bleeding varices which were band ligated 4 units of PRBC and 2 units of FFP were given 05/07 repeat EGD showed blood in stomach and another varix was banded. Patient was given another 1 unit of blood overnight 05/08 2 units of FFP ordered Continue hemoglobin monitoring q.6 hours Monitor coags Continue IV Protonix Discussed with GI will discontinue IV octreotide infusion Continue SBP prophylaxis with Rocephin DC albumin (2) Acute respiratory failure: Code(s): J96.00 - Acute respiratory failure, unspecified whether with hypoxia or hypercapnia Status: Acute Assessment and Plan: Continue full mechanical ventilation support to prevent hypoxemia/hypercarbia and end organ damage. -successfully extubated on 05/01/202205/11 Chest x-ray: Unchanged diffuse bilateral airspace disease, most likely edema. Pneumonia less favored.:? Small pleural effusions. -patient placed on Airvo/high-flow therapy as she has been requiring more oxygen overnight -will switch Airvo therapy to nasal cannula and evaluate. 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: Code(s): D68.4 - Acquired coagulation factor deficiency Status: Acute Assessment and Plan: INR is elevated -will repeat vitamin K again today (5) Anemia due to acute blood loss: Code(s): D62 - Acute posthemorrhagic anemia Status: Acute Assessment and Plan: Hemoglobin remained stable, continue to monitor (6) Thrombocytopenia: Code(s): D69.6 - Thrombocytopenia, unspecified Status: Acute Assessment and Plan: Baseline unknown but likely secondary to cirrhosis and splenomegaly Platelets improving, continue to monitor (7) Enteritis: Code(s): K52.9 - Noninfective gastroenteritis and colitis, unspecified Status: Acute Assessment and Plan: CT showed some evidence of enteritis and possible small bowel intussusception 06/09 Flagyl discontinued after discussing with GI C diff negative Plan DVT prophylaxis - SCD, no chemoprophylaxis due to GI bleed Stress ulcer prophylaxis -on IV PPI Nutrition - NPO. PICC line in place Discussed with patient and her friend, updated them with patient's condition and plan of care. Code Status - Full Code Total Critical Care Time - 32 minutes -patient can be transferred out of the ICU Due to a high probability of clinically significant, life threatening deterioration, the patient required my highest level of preparedness to intervene emergently and I personally spent this critical care time directly and personally managing the patient. This critical care time included obtaining a history; examining the patient; pulse oximetry; ordering and review of studies; arranging urgent treatment with development of a management plan; evaluation of patient's response to treatment; frequent reassessment; and discussions with other providers. It was exclusive of separately billable procedures and treating other patients and teaching time. Please see Assessment and Plan section and the rest of the note for further information on patient assessment and treatment Subjective
[2022-05-13] VITALS (17 sets, daily range): BP systolic 105–129; BP diastolic 45–53; PULSE 63–84; RESP 16–24; TEMP 36.3–36.7; O2SAT 90–98
[2022-05-13] MEDS: ALBUTEROL SULFATE NEB 2.5 MG/3 ML INH INHALATION ×4 (02:02→20:58)
[2022-05-13] MEDS: CENTRAL LINE FLUSH 10 ML IV PUSH ×3 (06:51→20:06)
[2022-05-13 06:53] LABS: Glucose Point of Care 120 mg/dl (65-105)
[2022-05-13 07:57] LABS: INR 2.5; Prothrombin Time 26.2 Seconds (11.1-14.7)
[2022-05-13] MEDS: TOLNAFTATE 1% POWDER 45 GM BTL 1 APPLIC TOPICAL ×2 (08:29→20:05)
[2022-05-13] MEDS: BUMETANIDE INJ 1 MG/4 ML VIAL IV PUSH (08:29)
[2022-05-13] MEDS: PANTOPRAZOLE SODIUM IV 40 MG VIAL IV PUSH ×2 (08:30→20:03)
[2022-05-13] MEDS: PHYTONADIONE 5 MG TABLET 10 MG PO (08:30)
[2022-05-13] MEDS: carvediloL 6.25 MG TABLET PO ×2 (08:30→20:02)
--- NOTE | 2022-05-13 10:45 | PM.IMPN ---
Progress Note: A&P Assessment and Plan (1) Esophageal varices with bleeding: Code(s): I85.01 - Esophageal varices with bleeding Status: Acute Assessment and Plan: End-stage cirrhosis of unknown etiology, likely JOHNSON, with GI bleed 05/06 EGD showed bleeding varices which were band ligated 4 units of PRBC and 2 units of FFP were given 05/07 Repeat EGD showed blood in stomach and another varix was banded. Patient was given another 1 unit of blood overnight 05/08 2 units of FFP ordered Continue hemoglobin monitoring q.6 hours Monitor coags Continue IV Protonix SBP prophylaxis with Rocephin, today is day 7, would anticipate d/c abx today, will defer final decision to GI (2) Acute respiratory failure: Code(s): J96.00 - Acute respiratory failure, unspecified whether with hypoxia or hypercapnia Status: Acute Assessment and Plan: On 2 L nasal cannula today, continuing to wean Home O2 eval pending Extubated May 10, 2022 (3) Liver cirrhosis secondary to nonalcoholic steatohepatitis (JOHNSON): Code(s): K75.81 - Nonalcoholic steatohepatitis (JOHNSON); K74.60 - Unspecified cirrhosis of liver Status: Acute Assessment and Plan: End-stage liver disease, sees hepatology at [facility] in [place] Patient has received a total of 5 units of packed RBCs, 3 units of FFP and 1 unit of platelets Monitor liver enzymes, INR 05/08 ammonia level within normal limits Patient has been given vitamin K (4) 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: Code(s): D68.4 - Acquired coagulation factor deficiency Status: Acute Assessment and Plan: See above (5) Anemia due to acute blood loss: Code(s): D62 - Acute posthemorrhagic anemia Status: Acute Assessment and Plan: See above (6) Thrombocytopenia: Code(s): D69.6 - Thrombocytopenia, unspecified Status: Acute Assessment and Plan: Baseline unknown but likely secondary to cirrhosis and splenomegaly Platelets fluctuating between 50-60s (7) Enteritis: Code(s): K52.9 - Noninfective gastroenteritis and colitis, unspecified Status: Acute Assessment and Plan: CT showed some evidence of enteritis and possible small bowel intussusception DC Flagyl, discussed with GI C diff negative (8) Hypokalemia: Code(s): E87.6 - Hypokalemia Status: Acute Assessment and Plan: Labs pending Plan DVT prophylaxis with SCDs GI prophylaxis with PPI Code status full code Subjective Date/time seen: 05/13/22 10:45 Interval history: Patient states she feels much better than yesterday. No overnight events noted. No chest pain or shortness of breath. No nausea, vomiting or diarrhea. No fevers or chills. Review of Systems Review of Systems: 12 point review of systems was assessed and was negative except as noted in the HPI Exam Narrative: General: No acute distress, alert and oriented per baseline, stable on 2 L HEENT: Atraumatic, normocephalic, mucous membranes moist, icteric sclera CV: Regular rate and rhythm, S1, S2 Lungs: Clear to auscultation bilaterally, no rales or crackles noted, no wheezes, good air entry Abdomen: Soft, nontender, nondistended Extremities: Normal to inspection Skin: No rashes noted, no lesions or wounds seen Psych: Euthymic, normal affect Objective Data Vital Signs Vital Signs: Vital Signs - 24 hr 05/12/22 10:48 05/12/22 12:02 05/12/22 12:00 Temperature Pulse Rate 93 74 Respiratory Rate 20 Blood Pressure Pulse Oximetry 99 Oxygen Delivery Nasal Cannula High Flow Nasal Cannula Oxygen Flow Rate 8 15 Fraction of Inspired Oxygen 65 05/12/22 12:00 05/12/22 11:00 05/12/22 11:01 Temperature Pulse Rate 74 89 96 Respiratory Rate 26 H 19 Blood Pressure 148/70 H Pulse Oximetry 96 96 Oxygen Delivery Oxygen Flow Rate Fraction of Inspired Oxygen 05/12/22 11:15 05/12/22 11:30 10/0
[2022-05-13 12:21] LABS: Glucose Point of Care 110 mg/dl (65-105)
[2022-05-13] MEDS: BENZONATATE 100 MG CAPSULE 200 MG PO (12:39)
--- NOTE | 2022-05-13 16:00 | PC.NURSE ---
This patient, Juanis Omalley, was transferred to [ [id number]] on 05/13/22 at 1555. Personal belongings sent with patient. Appropriate documentation sent with patient.
[2022-05-13] MEDS: guaiFENesin/DEXTROMETHORPHAN 10 ML UDC 5 ML PO (17:46)
[2022-05-13 18:15] LABS: Glucose Point of Care 152 mg/dl (65-105)
[2022-05-14] VITALS (16 sets, daily range): BP systolic 111–119; BP diastolic 46–52; PULSE 62–80; RESP 16–24; TEMP 36.4–37.3; O2SAT 87–96
[2022-05-14] MEDS: guaiFENesin/DEXTROMETHORPHAN 10 ML UDC 5 ML PO ×2 (00:29→21:58)
[2022-05-14] MEDS: CENTRAL LINE FLUSH 10 ML IV PUSH ×3 (04:56→22:01)
[2022-05-14 04:58] LABS: Basophils Percent Auto 0.4 % (0.2-1.2); Eosinophils Absolute Auto 0.5 K/mm3 (0-0.3); Eosinophils Percent Auto 5.9 % (0-4.4); Hematocrit 23.4 % (37.0-47.0); Hemoglobin 7.5 g/dL (12.0-15.0); Immature Granulocyte Absolute 0.08 K/mm3 (0.00-0.031); Immature Platelet Fraction Pct 7.6 % (0.9-11.2); Lymphocytes Absolute Auto 1.35 K/mm3 (0.9-3.2); Lymphocytes Percent Auto 16.5 % (18.3-44.2); Mean Corpuscular HGB Conc 32.1 g/dl (32-36); Mean Corpuscular Hemoglobin 29.8 pg (26-34); Mean Corpuscular Volume 92.9 fl (80-100); Mean Platelet Volume 11.4 fl (7.4-10.4); Monocytes Absolute Auto 0.7 K/mm3 (0.1-0.6); Monocytes Percent Auto 8.4 % (2.6-8.5); Neutrophils Absolute Auto 5.5 K/mm3 (1.3-6.7); Neutrophils Percent Auto 67.8 % (45.5-73.1); Platelet Count Result 61 k/mm3 (150-375); Red Blood Count 2.52 M/mm3 (4.2-5.4); Red Cell Distribution Width 16.5 % (11.5-14.5); White Blood Count 8.2 K/mm3 (4.5-10.0)
[2022-05-14 05:13] LABS: INR 2.5; Prothrombin Time 26.3 Seconds (11.1-14.7)
[2022-05-14 05:23] LABS: Alanine Aminotransferase 17 U/L (6-35); Albumin Level 3.3 g/dL (3.5-5.1); Alkaline Phosphatase 43 U/L (38-126); Anion Gap 7 mmol/L (8-16); Aspartate Amino Transferase 33 U/L (14-36); Bilirubin,Total 2.5 mg/dL (0.2-1.3); Blood Urea Nitrogen 23 mg/dL (7-17); Calcium 8.1 mg/dL (8.4-10.2); Carbon Dioxide 28 mmol/L (22-30); Chloride 99 mmol/L (98-107); Estimated CRCL calculation 56 ml/min; Estimated Glomerular Filt Rate > 60; Glucose 105 mg/dL (65-110); Sodium 134 mmol/L (137-145)
--- NOTE | 2022-05-14 07:15 | WPDGIPROGNO ---
Progress Note: A&P Assessment and Plan (1) Esophageal varices with bleeding: Code(s): I85.01 - Esophageal varices with bleeding Status: Acute Assessment and Plan: End-stage cirrhosis of unknown etiology with GI bleed 05/06 EGD showed bleeding varices which were band ligated 4 units of PRBC and 2 units of FFP were given 05/07 Repeat EGD showed blood in stomach and another varix was banded. Patient was given another 1 unit of blood overnight 05/08 2 units of FFP ordered Continue hemoglobin monitoring q.6 hours Monitor coags Continue IV Protonix SBP prophylaxis with Rocephin, today is day 7, would anticipate d/c abx today, will defer final decision to GI 05/12/2022 I will start her on a nonselective beta-rich to reduce portal venous pressure. I explained to her and her family that this will help but not necessarily prevent further bleeding. Ideally, we would like to see her resting pulse reduced by about 25%. She had been in the 80s and 90s. I will strive to get her pulse at or around 70. She may need a higher dose of carvedilol but we will see how she does with the current dose, 6.25 mg b.i.d. the patient her daughter try to remember the name of her focuser in [place]. I had suggested that they try to make an appointment for her to be seen within the next couple weeks, after discharge 05/14/2022 her resting pulse has come down to around 70. I think that this would be the appropriate dose of beta-rich for now to help with portal hypertension. I will plan a repeat EGD j before she is discharged and tries back to [place], probably to be done tomorrow (2) Acute respiratory failure: Code(s): J96.00 - Acute respiratory failure, unspecified whether with hypoxia or hypercapnia Status: Acute Assessment and Plan: Extubated May 10, 2022 05/12/2022 she is doing well with no tachypnea. 05/14/2022 she is not needing supplemental oxygen. She does complain she is still coughing and I explained that that is probably due to the endotracheal tube. (3) Liver cirrhosis secondary to nonalcoholic steatohepatitis (JOHNSON): Code(s): K75.81 - Nonalcoholic steatohepatitis (JOHNSON); K74.60 - Unspecified cirrhosis of liver Status: Acute Assessment and Plan: Patient has received a total of 5 units of packed RBCs, 3 units of FFP and 1 unit of platelets Monitor liver enzymes, INR 05/08 ammonia level within normal limits Patient has been given vitamin K 05/12/2020 to she states that they never did obtain an explanation for the etiology of her cirrhosis. She states that it was called fatty liver until she saw focuser 2 told her that she does indeed have cirrhosis. She states that she has never been much of a drinker and believes that her specialist as done test to rule out other causes. . 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 We definitely need to try to lower it more. I will start her on a daily dose of oral vitamin K 05/14/2022 will give her FFP prior to EGD tomorrow (5) Anemia due to acute blood loss: Code(s): D62 - Acute posthemorrhagic anemia Status: Acute Assessment and Plan: 05/12/22. Hemoglobin is stable at 7.7. (6) Thrombocytopenia: Code(s): D69.6 - Thrombocytopenia, unspecified Status: Acute Assessment and Plan: Baseline unknown but likely secondary to cirrhosis and splenomegaly Platelets fluctuating between 50-60s Today platelet count is up to 62,000. (7) Enteritis: Code(s): K52.9 - Noninfective gastroenteritis and colitis, unspecified Status: Acute Assessment and Plan: CT showed some evidence of enteritis and possible small bowel intussusception EULALIO Nicholas, discussed with GI Reggie blue
[2022-05-14 08:04] LABS: Glucose Point of Care 111 mg/dl (65-105)
[2022-05-14] MEDS: BENZONATATE 100 MG CAPSULE 200 MG PO ×3 (08:29→16:37)
[2022-05-14] MEDS: carvediloL 6.25 MG TABLET PO (08:29)
[2022-05-14] MEDS: PHYTONADIONE 5 MG TABLET 10 MG PO (08:29)
[2022-05-14] MEDS: PANTOPRAZOLE SODIUM IV 40 MG VIAL IV PUSH ×2 (08:30→21:59)
[2022-05-14] MEDS: BUMETANIDE INJ 1 MG/4 ML VIAL IV PUSH (08:30)
[2022-05-14] MEDS: TOLNAFTATE 1% POWDER 45 GM BTL 1 APPLIC TOPICAL ×2 (08:30→22:00)
[2022-05-14] MEDS: POTASSIUM CHLORIDE 20 MEQ TABLET 60 MEQ PO (08:41)
[2022-05-14] MEDS: ALBUTEROL SULFATE NEB 2.5 MG/3 ML INH INHALATION ×3 (08:50→21:04)
--- NOTE | 2022-05-14 11:02 | HOMEO2EVAL ---
Evaluation was performed at [facility] Home Oxygen Evaluation RC: Home Oxygen (O2) Evaluation Start: 05/13/22 10:46 Freq: ONCE Status: Active Protocol: RPE Activity Type Activity Date Activity User E-sign Co-sign Detail Recorded Client Recorded Date Recorded By Document 05/14/22 10:42 KRM [email or web address] 05/14/22 11:02 KRM Document 05/14/22 10:44 KRM [email or web address] 05/14/22 11:02 KRM Document 05/14/22 10:46 KRM [email or web address] 05/14/22 11:02 KRM Document 05/14/22 10:49 KRM [email or web address] 05/14/22 11:02 KRM Document 05/14/22 10:50 KRM [email or web address] 05/14/22 11:02 KRM 05/14/22 05/14/22 05/14/22 10:42 10:44 10:46 Home O2 Evaluation Test Phase Resting Resting Resting Oxygen Delivery Room Air Nasal Cannula Nasal Cannula Oxygen Flow Rate (L/min) 1 2 Pulse Oximetry (90-100 %) 87 L 88 L 90 Pulse Rate (60-100 beats/min) 75 74 73 Activity Tolerance Ambulation Distance (feet) Ambulation Distance (meters) Home Oxygen Evaluation Comments Treatment Charges 05/14/22 05/14/22 10:49 10:50 Home O2 Evaluation Test Phase Exercise Exercise Oxygen Delivery Nasal Cannula Nasal Cannula Oxygen Flow Rate (L/min) 2 3 Pulse Oximetry (90-100 %) 87 L 94 Pulse Rate (60-100 beats/min) 76 80 Activity Tolerance Good Good Ambulation Distance (feet) 200 Ambulation Distance (meters) 60.95 Home Oxygen Evaluation Comments 2lpm at rest, 3lpm with activity needed . Treatment Charges O2 Evaluation - Inpatient
[2022-05-14 11:45] LABS: Glucose Point of Care 135 mg/dl (65-105)
--- NOTE | 2022-05-14 12:08 | PCNFU ---
Nutrition Follow-Up Complete: Inadequate Oral Intake as related to Nausea as evidenced by poor po intake reported. Meet estimated nutritional needs Goal: goal not met due to NPO status. continue goal (when medically appropriate) Pt current nutrition is soft & bite sized foods (level 6), full liquid diet. Nutrition recommendation: continue original goal and ensure compact BID when medically appropriate. Pt will be NPO 05/15 Last recorded weight is 84.7 kg. Bowel Motility: last BM 05/13/2022 Labs Reviewed: Hgb: 7.5, Hct: 23.4, Alb: 3.3, Na: 134, K: 3, BUN: 23 Meds Noted:tolnafatate, mephyton, protonix, zofran, robitussin, coreg, bumex, tessalon Skin: WNL Additional Notes: Pt says she is hungry, good appetite. States at her doctors appointment on 05/05 she weight 177. took her bed scale wt: 186lbs. She doesn't think that sounds correct and thinks her 177lbs is more correct. Pt is not too sure about the wt discrepancy per EMR, 05/08 wt: 199lbs, 05/14: 186lbs. thinks there may have bene some fluid retention, but nor enough to be 13lbs difference in 1 week. monitor weight and reweigh as appropriate. Will monitor every 5 days.
--- NOTE | 2022-05-14 13:54 | PCNSR ---
On 05/14/22, the student, Bradford Sullivan, provided care and completed [facility] documentation on this patient. I have reviewed the student's documentation and agree with the findings.
--- NOTE | 2022-05-14 15:35 | PCRCNOTE ---
[facility] APPROVED OXYGEN. RT WILL DELIVER POC TO ROOM 310 TOMORROW BEFORE DISCHARGE.
[2022-05-14 16:19] LABS: Glucose Point of Care 110 mg/dl (65-105)
--- NOTE | 2022-05-14 16:34 | PM.IMPN ---
Progress Note: A&P Assessment and Plan (1) Esophageal varices with bleeding: Code(s): I85.01 - Esophageal varices with bleeding Status: Acute Assessment and Plan: End-stage cirrhosis of unknown etiology, likely JOHNSON, with GI bleed 05/06 EGD showed bleeding varices which were band ligated 4 units of PRBC and 2 units of FFP were given 05/07 Repeat EGD showed blood in stomach and another varix was banded. Patient was given another 1 unit of blood overnight 05/08 2 units of FFP ordered Continue hemoglobin monitoring q.6 hours Monitor coags Repeat EGD planned for tomorrow prior to discharge Completed 7 day course of Rocephin for SBP prophylaxis (2) Acute respiratory failure: Code(s): J96.00 - Acute respiratory failure, unspecified whether with hypoxia or hypercapnia Status: Acute Assessment and Plan: On 2 L nasal cannula, continuing to wean Home O2 eval completed Extubated May 10, 2022 (3) Liver cirrhosis secondary to nonalcoholic steatohepatitis (JOHNSON): Code(s): K75.81 - Nonalcoholic steatohepatitis (JOHNSON); K74.60 - Unspecified cirrhosis of liver Status: Acute Assessment and Plan: End-stage liver disease, sees hepatology at [place] in [place] Patient has received a total of 5 units of packed RBCs, 3 units of FFP and 1 unit of platelets Monitor liver enzymes, INR 05/08 ammonia level within normal limits Patient has been given vitamin K (4) 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: Code(s): D68.4 - Acquired coagulation factor deficiency Status: Acute Assessment and Plan: See above (5) Anemia due to acute blood loss: Code(s): D62 - Acute posthemorrhagic anemia Status: Acute Assessment and Plan: See above (6) Thrombocytopenia: Code(s): D69.6 - Thrombocytopenia, unspecified Status: Acute Assessment and Plan: Baseline unknown but likely secondary to cirrhosis and splenomegaly Platelets fluctuating between 50-60s (7) Enteritis: Code(s): K52.9 - Noninfective gastroenteritis and colitis, unspecified Status: Acute Assessment and Plan: CT showed some evidence of enteritis and possible small bowel intussusception DC Flagyl, discussed with GI C diff negative (8) Hypokalemia: Code(s): E87.6 - Hypokalemia Status: Acute Assessment and Plan: Labs pending Plan DVT prophylaxis with SCDs GI prophylaxis with PPI Code status full code Subjective Date/time seen: 05/14/22 16:34 Interval history: Spent extensive time speaking with patient, patient's partner and patient's daughter regarding the diagnosis, prognosis and treatment. No overnight events noted. No chest pain or shortness of breath. No nausea, vomiting or diarrhea. No fevers or chills. Review of Systems Review of Systems: 12 point review of systems was assessed and was negative except as noted in the HPI Exam Narrative: General: No acute distress, alert and oriented per baseline HEENT: Atraumatic, normocephalic, mucous membranes moist, icteric sclera CV: Regular rate and rhythm, S1, S2 Lungs: Clear to auscultation bilaterally, no rales or crackles noted, no wheezes, good air entry Abdomen: Soft, nontender, nondistended Extremities: Normal to inspection Skin: No rashes noted, no lesions or wounds seen Psych: Euthymic, normal affect Objective Data Vital Signs Vital Signs: Vital Signs - 24 hr 05/13/22 20:02 05/13/22 21:47 05/13/22 22:09 Temperature 98.1 F Pulse Rate 76 70 Respiratory Rate 24 H Blood Pressure 105/45 L Pulse Oximetry 91 91 Oxygen Delivery Nasal Cannula Oxygen Flow Rate 2 Fraction of Inspired Oxygen 05/13/22 20:00 05/14/22 08:00 05/14/22 08:29 Temperature Pulse Rate 70 67 67 Respiratory Rate 24 H Blood Pressure Pulse Oximetry 91 96 Oxygen Delivery Nasal Cannula Nasal Cannula Oxygen Flow Rate 2 2 Fraction of Inspired Oxygen
[2022-05-15] VITALS (26 sets, daily range): BP systolic 103–141; BP diastolic 44–67; PULSE 67–86; RESP 16–27; TEMP 36.1–37; O2SAT 91–100
[2022-05-15] MEDS: CENTRAL LINE FLUSH 10 ML IV PUSH ×3 (06:58→21:00)
[2022-05-15 07:24] LABS: Basophils Percent Auto 0.4 % (0.2-1.2); Eosinophils Absolute Auto 0.3 K/mm3 (0-0.3); Eosinophils Percent Auto 4.8 % (0-4.4); Hematocrit 24.7 % (37.0-47.0); Hemoglobin 7.8 g/dL (12.0-15.0); Immature Granulocyte Absolute 0.04 K/mm3 (0.00-0.031); Immature Granulocyte Percent A 0.6 % (0-0.5); Immature Platelet Fraction Pct 8.1 % (0.9-11.2); Lymphocytes Absolute Auto 1.06 K/mm3 (0.9-3.2); Lymphocytes Percent Auto 15.3 % (18.3-44.2); Mean Corpuscular HGB Conc 31.6 g/dl (32-36); Mean Corpuscular Hemoglobin 29.8 pg (26-34); Mean Corpuscular Volume 94.3 fl (80-100); Mean Platelet Volume 11.4 fl (7.4-10.4); Monocytes Absolute Auto 0.6 K/mm3 (0.1-0.6); Monocytes Percent Auto 8.4 % (2.6-8.5); Neutrophils Absolute Auto 4.9 K/mm3 (1.3-6.7); Neutrophils Percent Auto 70.5 % (45.5-73.1); Platelet Count Result 70 k/mm3 (150-375); Red Blood Count 2.62 M/mm3 (4.2-5.4); Red Cell Distribution Width 16.8 % (11.5-14.5); White Blood Count 6.9 K/mm3 (4.5-10.0)
[2022-05-15 07:36] LABS: Alanine Aminotransferase 17 U/L (6-35); Albumin Level 3.3 g/dL (3.5-5.1); Alkaline Phosphatase 44 U/L (38-126); Anion Gap 9 mmol/L (8-16); Aspartate Amino Transferase 38 U/L (14-36); Bilirubin,Total 2.5 mg/dL (0.2-1.3); Blood Urea Nitrogen 17 mg/dL (7-17); Calcium 8.5 mg/dL (8.4-10.2); Carbon Dioxide 30 mmol/L (22-30); Chloride 98 mmol/L (98-107); Estimated CRCL calculation 58 ml/min; Estimated Glomerular Filt Rate > 60; Glucose 105 mg/dL (65-110); Sodium 137 mmol/L (137-145)
[2022-05-15] MEDS: POTASSIUM CHLORIDE 20 MEQ TABLET 40 MEQ PO (08:32)
[2022-05-15] MEDS: BENZONATATE 100 MG CAPSULE 200 MG PO ×3 (08:33→16:50)
[2022-05-15] MEDS: carvediloL 6.25 MG TABLET PO ×2 (08:33→20:38)
[2022-05-15] MEDS: PANTOPRAZOLE SODIUM IV 40 MG VIAL IV PUSH ×2 (08:33→20:38)
[2022-05-15] MEDS: POTASSIUM CHLORIDE INJ 40 MEQ in SODIUM CHLORIDE 0.9% IV 500 ML 130 MEQ IVPB (08:33)
[2022-05-15] MEDS: PHYTONADIONE 5 MG TABLET 10 MG PO (08:34)
[2022-05-15] MEDS: TOLNAFTATE 1% POWDER 45 GM BTL 1 APPLIC TOPICAL ×2 (08:38→20:39)
[2022-05-15 08:42] LABS: INR 2.4; Prothrombin Time 25.5 Seconds (11.1-14.7)
[2022-05-15] MEDS: ALBUTEROL SULFATE NEB 2.5 MG/3 ML INH INHALATION ×3 (09:43→20:57)
[2022-05-15] MEDS: SODIUM CHLORIDE 0.9% IV 250 ML 30 ML IV CONT (11:30)
[2022-05-15] MEDS: TUBING, BLOOD PLUM PUMP TUBING 1 EACH XX (11:52)
--- NOTE | 2022-05-15 12:17 | PM.DS ---
DS: Admitting Diagnosis Discharge Date May 15, 2022 Admitting Diagnosis Nausea, vomiting and diarrhea DS: Discharge Diagnosis Discharge Diagnosis (1) Esophageal varices with bleeding: Code(s): I85.01 - Esophageal varices with bleeding Status: Acute Assessment and Plan: End-stage cirrhosis of unknown etiology, likely JOHNSON, with GI bleed 05/06 EGD showed bleeding varices which were band ligated 4 units of PRBC and 2 units of FFP were given 05/07 Repeat EGD showed blood in stomach and another varix was banded. Patient was given another 1 unit of blood overnight 05/08 2 units of FFP ordered Continue hemoglobin monitoring q.6 hours Monitor coags Repeat EGD pending for today Completed 7 day course of Rocephin for SBP prophylaxis Hemoglobin has remained stable between 7 and 8 (2) Acute respiratory failure: Code(s): J96.00 - Acute respiratory failure, unspecified whether with hypoxia or hypercapnia Status: Acute Assessment and Plan: On 2 L nasal cannula, continuing to wean Home O2 eval completed Extubated May 10, 2022 (3) Liver cirrhosis secondary to nonalcoholic steatohepatitis (JOHNSON): Code(s): K75.81 - Nonalcoholic steatohepatitis (JOHNSON); K74.60 - Unspecified cirrhosis of liver Status: Acute Assessment and Plan: End-stage liver disease, sees hepatology at [facility] in [place] Patient has received a total of 5 units of packed RBCs, 3 units of FFP and 1 unit of platelets Monitor liver enzymes, INR, down to 2.4 today 05/08 ammonia level within normal limits (4) 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: Code(s): D68.4 - Acquired coagulation factor deficiency Status: Acute Assessment and Plan: See above (5) Anemia due to acute blood loss: Code(s): D62 - Acute posthemorrhagic anemia Status: Acute Assessment and Plan: See above (6) Thrombocytopenia: Code(s): D69.6 - Thrombocytopenia, unspecified Status: Acute Assessment and Plan: Baseline unknown but likely secondary to cirrhosis and splenomegaly Platelets fluctuating between 50-60s, 70 today (7) Enteritis: Code(s): K52.9 - Noninfective gastroenteritis and colitis, unspecified Status: Acute Assessment and Plan: CT showed some evidence of enteritis and possible small bowel intussusception C diff negative (8) Hypokalemia: Code(s): E87.6 - Hypokalemia Status: Acute Assessment and Plan: K was 3 yesterday, replaced with 60 mEq, still 3 today, will replete and recheck again, magnesium WNL, unsure of etiology Plan DVT prophylaxis with SCDs GI prophylaxis with PPI Code status full code DS: Summary Hospital Course Hospital Course: 71-year-old female with cirrhosis related to JOHNSON who presented to the ED via private vehicle from home for evaluation of nausea, vomiting, and diarrhea. She is from [place] and is driving through the area in route to [place] where she is to partake in a writers conference. After driving a majority of the day, she and her commercial airplane pilot stopped at a local motel overnight. They both had a chicken sandwich for dinner and not long after eating the patient began to experience some nausea with generalized abdominal cramps. She had multiple episodes of bright red emesis overnight and several episodes of dry heaves thereafter. This morning she had several dark loose stools described as ?muddy in color and texture. She has never had similar symptoms in the past and she has never had a surveillance endoscopy. On arrival to the emergency department her vital signs were stable and hemoglobin was 10.2. She had several episodes of bloody emesis in the emergency department and a repeat hemoglobin was 8.2. She was transfused 2 units of packed red blood cells and was started on octreotide and pantoprazole drips. After arriving to the ICU, the patient had several more episodes of bloody emesis and her bloo
[2022-05-15] MEDS: LACTATED RINGERS 1,000 ML 150 ML IV CONT (12:23)
--- NOTE | 2022-05-15 12:31 | WPDANESEPPF ---
Anes - Initial Pre Proc Eval Procedure: Operation Date: 05/06/22 18:30 Proposed Procedures p Esophagogastroduodenoscopy - Juventino Jurado MD Operation Date: 05/07/22 14:45 Proposed Procedures p Esophagogastroduodenoscopy - Juventino Jurado MD Operation Date: 05/15/22 12:00 Proposed Procedures p Esophagogastroduodenoscopy EGD - Juventino Jurado MD Date/Time: 05/15/22 12:31 Surgeon: Alphonse Krueger MD Pre Op Diagnosis: GI Bleed Patient Data Age: 72 Gender: F Height: 1.6 m Weight: 86.4 kg Last Vital Signs Temp 97.8 F 05/15/22 12:21 Pulse 77 05/15/22 12:21 Resp 18 05/15/22 12:21 BP 130/61 05/15/22 12:21 Pulse Ox 100 05/15/22 12:21 O2 Del Method Room Air 05/15/22 12:21 O2 Flow Rate 2 05/15/22 09:45 FiO2 65 05/13/22 20:00 Allergies Allergy/AdvReac Type Severity Reaction Status Date / Time Iodinated Contrast Media Allergy Difficulty Verified 05/06/22 09:43 Breathing codeine AdvReac Vomiting Verified 05/08/22 07:11 Home Medications Medication Instructions Recorded Confirmed Type albuterol sulfate 90 mcg/actuation 2 inh inhalation Q4H PRN Shortness 05/06/22 05/06/22 History aerosol inhaler Of Breath Laboratory Tests 05/14/22 05/15/22 05/15/22 16:13 06:56 07:01 WBC RBC Hgb Hct MCV MCH MCHC RDW Plt Count MPV Immature Gran % (Auto) Neut % (Auto) Lymph % (Auto) [place] % (Auto) Eos % (Auto) Baso % (Auto) Lymph # (Auto) [place] # (Auto) Eos # (Auto) Baso # (Auto) Abs Immat Gran (auto) Absolute Neuts (auto) Absolute Nucleated RBC Nucleated RBC % % Immature Plt Fraction PT 25.5 Seconds H Seconds (11.1-14.7) INR 2.4 Sodium Potassium Chloride Carbon Dioxide Anion Gap BUN Creatinine Estim Creat Clear Calc Estimated GFR Glucose POC Capillary Glucose 110 mg/dl H mg/dl (65-105) Calcium Total Bilirubin AST ALT Alkaline Phosphatase Total Protein Albumin Blood Type O Negative 05/15/22 05/15/22 07:01 07:01 WBC 6.9 K/mm3 K/mm3 (4.5-10.0) RBC 2.62 M/mm3 L M/mm3 (4.2-5.4) Hgb 7.8 g/dL L g/dL (12.0-15.0) Hct 24.7 % L % (37.0-47.0) MCV 94.3 fl fl (80-100) MCH 29.8 pg pg (26-34) MCHC 31.6 g/dl L g/dl (32-36) RDW 16.8 % H % (11.5-14.5) Plt Count 70 k/mm3 L k/mm3 (150-375) MPV 11.4 fl H fl (7.4-10.4) Immature Gran % (Auto) 0.6 % H % (0-0.5) Neut % (Auto) 70.5 % % (45.5-73.1) Lymph % (Auto) 15.3 % L % (18.3-44.2) [place] % (Auto) 8.4 % % (2.6-8.5) Eos % (Auto) 4.8 % H % (0-4.4) Baso % (Auto) 0.4 % % (0.2-1.2) Lymph # (Auto) 1.06 K/mm3 K/mm3 (0.9-3.2) [place] # (Auto) 0.6 K/mm3 K/mm3 (0.1-0.6) Eos # (Auto) 0.3 K/mm3 K/mm3 (0-0.3) Baso # (Auto) 0.0 K/mm3 K/mm3 (0.0-0.1) Abs Immat Gran (auto) 0.04 K/mm3 H K/mm3 (0.00-0.031) Absolute Neuts (auto) 4.9 K/mm3 K/mm3 (1.3-6.7) Absolute Nucleated RBC 0.0 K/mm3 K/mm3 (0.0-0.012) Nucleated RBC % 0.0 % % (0.0-0.2) % Immature Plt Fraction 8.1 % % (0.9-11.2) PT INR Sodium 137 mmol/L mmol/L (137-145) Potassium 3.0 mmol/L L mmol/L (3.4-5.0) Chloride 98 mmol/L mmol/L (98-107) Carbon Dioxide 30 mmol/L mmol/L (22-30) Anion Gap 9 mmol/L mmol/L (8-16) BUN 17 mg/dL mg/dL (7-17) Creatinine 0.80
--- NOTE | 2022-05-15 12:55 | SUR.OPER ---
IMPLANT INFO [employer] SPEED BAND LOT #[id number] EXP 03/19/2023
--- NOTE | 2022-05-15 16:08 | PCPTNOTE ---
The patient treatment was not able to be completed this afternoon due to patient out of room for EGD. Will plan to continue treatment per plan of care.
--- NOTE | 2022-05-15 16:13 | PM.IMPN ---
Progress Note: A&P Assessment and Plan (1) Esophageal varices with bleeding: Code(s): I85.01 - Esophageal varices with bleeding Status: Acute Assessment and Plan: End-stage cirrhosis of unknown etiology, likely JOHNSON, with GI bleed 05/06 EGD showed bleeding varices which were band ligated 4 units of PRBC and 2 units of FFP were given 05/07 Repeat EGD showed blood in stomach and another varix was banded. Patient was given another 1 unit of blood overnight 05/08 2 units of FFP ordered Continue hemoglobin monitoring q.6 hours Monitor coags Repeat EGD pending for today Completed 7 day course of Rocephin for SBP prophylaxis Hemoglobin has remained stable between 7 and 8 (2) Acute respiratory failure: Code(s): J96.00 - Acute respiratory failure, unspecified whether with hypoxia or hypercapnia Status: Acute Assessment and Plan: On 2 L nasal cannula, continuing to wean Home O2 eval completed Extubated May 10, 2022 (3) Liver cirrhosis secondary to nonalcoholic steatohepatitis (JOHNSON): Code(s): K75.81 - Nonalcoholic steatohepatitis (JOHNSON); K74.60 - Unspecified cirrhosis of liver Status: Acute Assessment and Plan: End-stage liver disease, sees hepatology at [facility] in [place] Patient has received a total of 5 units of packed RBCs, 3 units of FFP and 1 unit of platelets Monitor liver enzymes, INR, down to 2.4 today 05/08 ammonia level within normal limits (4) 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: Code(s): D68.4 - Acquired coagulation factor deficiency Status: Acute Assessment and Plan: See above (5) Anemia due to acute blood loss: Code(s): D62 - Acute posthemorrhagic anemia Status: Acute Assessment and Plan: See above (6) Thrombocytopenia: Code(s): D69.6 - Thrombocytopenia, unspecified Status: Acute Assessment and Plan: Baseline unknown but likely secondary to cirrhosis and splenomegaly Platelets fluctuating between 50-60s, 70 today (7) Enteritis: Code(s): K52.9 - Noninfective gastroenteritis and colitis, unspecified Status: Acute Assessment and Plan: CT showed some evidence of enteritis and possible small bowel intussusception C diff negative (8) Hypokalemia: Code(s): E87.6 - Hypokalemia Status: Acute Assessment and Plan: K was 3 yesterday, replaced with 60 mEq, still 3 today, will replete and recheck again, magnesium WNL, unsure of etiology Plan DVT prophylaxis with SCDs GI prophylaxis with PPI Code status full code Subjective Date/time seen: 05/15/22 16:13 Interval history: Patient still with a nagging dry cough. No overnight events noted. No chest pain or shortness of breath. No nausea, vomiting or diarrhea. No fevers or chills. Review of Systems Review of Systems: 12 point review of systems was assessed and was negative except as noted in the HPI Exam Narrative: General: No acute distress, alert and oriented per baseline HEENT: Atraumatic, normocephalic, mucous membranes moist, icteric sclera CV: Regular rate and rhythm, S1, S2 Lungs: Clear to auscultation bilaterally, no rales or crackles noted, no wheezes, good air entry Abdomen: Soft, nontender, nondistended Extremities: Normal to inspection Skin: No rashes noted, no lesions or wounds seen Psych: Euthymic, normal affect Objective Data Vital Signs Vital Signs: Vital Signs - 24 hr 05/14/22 21:01 05/14/22 21:04 05/14/22 21:05 Temperature 99.1 F Pulse Rate 78 67 Respiratory Rate 24 H 16 Blood Pressure 111/46 L Pulse Oximetry 94 94 Oxygen Delivery Nasal Cannula Oxygen Flow Rate 1 05/14/22 21:16 05/15/22 00:10 05/15/22 02:40 Temperature 98.6 F Pulse Rate 68 73 71 Respiratory Rate 16 24 H 18 Blood Pressure 103/44 L Pulse Oximetry 92 Oxygen Delivery Oxygen Flow Rate 05/15/22 02:50 05/15/22 04:54 05/15/22 08:00 Temperat
[2022-05-15] MEDS: guaiFENesin/DEXTROMETHORPHAN 10 ML UDC 5 ML PO (17:53)
[2022-05-15] MEDS: GABAPENTIN 100 MG CAPSULE PO (20:38)
[2022-05-16] VITALS (7 sets, daily range): BP systolic 138; BP diastolic 53; PULSE 72–82; RESP 18–20; TEMP 36.6; O2SAT 99
[2022-05-16] MEDS: ALBUTEROL SULFATE NEB 2.5 MG/3 ML INH INHALATION ×2 (02:51→08:38)
[2022-05-16] MEDS: CENTRAL LINE FLUSH 10 ML IV PUSH (06:45)
--- NOTE | 2022-05-16 06:52 | WPDGIPROGNO ---
Progress Note: A&P Assessment and Plan (1) Esophageal varices with bleeding: Code(s): I85.01 - Esophageal varices with bleeding Status: Acute Assessment and Plan: End-stage cirrhosis of unknown etiology with GI bleed 05/06 EGD showed bleeding varices which were band ligated 4 units of PRBC and 2 units of FFP were given 05/07 Repeat EGD showed blood in stomach and another varix was banded. Patient was given another 1 unit of blood overnight 05/08 2 units of FFP ordered Continue hemoglobin monitoring q.6 hours Monitor coags Continue IV Protonix SBP prophylaxis with Rocephin, today is day 7, would anticipate d/c abx today, will defer final decision to GI 05/12/2022 I will start her on a nonselective beta-rich to reduce portal venous pressure. I explained to her and her family that this will help but not necessarily prevent further bleeding. Ideally, we would like to see her resting pulse reduced by about 25%. She had been in the 80s and 90s. I will strive to get her pulse at or around 70. She may need a higher dose of carvedilol but we will see how she does with the current dose, 6.25 mg b.i.d. the patient her daughter try to remember the name of her stockbroker in [place]. I had suggested that they try to make an appointment for her to be seen within the next couple weeks, after discharge 05/14/2022 her resting pulse has come down to around 70. I think that this would be the appropriate dose of beta-rich for now to help with portal hypertension. I will plan a repeat EGD before she is discharged and tries back to [place], probably to be done tomorrow she had large varices seen on her EGD yesterday. I could see slaw feeding from where 1 had been placed previously. There was no evidence of active bleeding. I did place 2 bands on 1, the largest varicosity another band on another vein. I told Juanis that she will likely need another examination within a few weeks. She is going to arrange to see either her GI doctor or stockbroker in the next couple of weeks. Explain that she is on a beta-rich that lowers the pressure in her veins. This also lowers her pulse and it has brought her pulse down from the high 80s to around 70. Her blood pressure is a bit low but she is tolerating that well so far. (2) Acute respiratory failure: Code(s): J96.00 - Acute respiratory failure, unspecified whether with hypoxia or hypercapnia Status: Acute Assessment and Plan: Extubated May 10, 2022 05/12/2022 she is doing well with no tachypnea. 05/14/2022 she is not needing supplemental oxygen. She does complain she is still coughing and I explained that that is probably due to the endotracheal tube. (3) Liver cirrhosis secondary to nonalcoholic steatohepatitis (JOHNSON): Code(s): K75.81 - Nonalcoholic steatohepatitis (JOHNSON); K74.60 - Unspecified cirrhosis of liver Status: Acute Assessment and Plan: Patient has received a total of 5 units of packed RBCs, 3 units of FFP and 1 unit of platelets Monitor liver enzymes, INR 05/08 ammonia level within normal limits Patient has been given vitamin K 05/12/2020 to she states that they never did obtain an explanation for the etiology of her cirrhosis. She states that it was called fatty liver until she saw stockbroker 2 told her that she does indeed have cirrhosis. She states that she has never been much of a drinker and believes that her specialist as done test to rule out other causes. . 05/16/2022 she is going to make an appointment to see a stockbroker, probably affiliated with [facility]. 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 We definitely need to try to lower it more. I will start her on a daily dose o
[2022-05-16 06:54] LABS: Basophils Absolute Auto 0.1 K/mm3 (0.0-0.1); Basophils Percent Auto 0.8 % (0.2-1.2); Eosinophils Absolute Auto 0.3 K/mm3 (0-0.3); Eosinophils Percent Auto 5.2 % (0-4.4); Hematocrit 24.4 % (37.0-47.0); Hemoglobin 7.7 g/dL (12.0-15.0); Immature Granulocyte Absolute 0.05 K/mm3 (0.00-0.031); Immature Granulocyte Percent A 0.8 % (0-0.5); Immature Platelet Fraction Pct 6.9 % (0.9-11.2); Lymphocytes Percent Auto 17.2 % (18.3-44.2); Mean Corpuscular HGB Conc 31.6 g/dl (32-36); Mean Corpuscular Volume 94.9 fl (80-100); Mean Platelet Volume 11.4 fl (7.4-10.4); Monocytes Absolute Auto 0.6 K/mm3 (0.1-0.6); Monocytes Percent Auto 8.6 % (2.6-8.5); Neutrophils Absolute Auto 4.3 K/mm3 (1.3-6.7); Neutrophils Percent Auto 67.4 % (45.5-73.1); Platelet Count Result 63 k/mm3 (150-375); Red Blood Count 2.57 M/mm3 (4.2-5.4); Red Cell Distribution Width 17.2 % (11.5-14.5); White Blood Count 6.4 K/mm3 (4.5-10.0)
[2022-05-16 07:03] LABS: Prothrombin Time 22.1 Seconds (11.1-14.7)
[2022-05-16 07:15] LABS: Alanine Aminotransferase 20 U/L (6-35); Albumin Level 3.6 g/dL (3.5-5.1); Alkaline Phosphatase 60 U/L (38-126); Anion Gap 7 mmol/L (8-16); Aspartate Amino Transferase 44 U/L (14-36); Bilirubin,Total 2.5 mg/dL (0.2-1.3); Blood Urea Nitrogen 14 mg/dL (7-17); Calcium 8.6 mg/dL (8.4-10.2); Carbon Dioxide 28 mmol/L (22-30); Chloride 102 mmol/L (98-107); Estimated CRCL calculation 65 ml/min; Estimated Glomerular Filt Rate > 60; Glucose 106 mg/dL (65-110); Potassium 3.8 mmol/L (3.4-5.0); Sodium 137 mmol/L (137-145)
[2022-05-16] MEDS: carvediloL 6.25 MG TABLET PO (08:43)
[2022-05-16] MEDS: BENZONATATE 100 MG CAPSULE 200 MG PO ×2 (08:44→12:10)
[2022-05-16] MEDS: PHYTONADIONE 5 MG TABLET 10 MG PO (08:44)
[2022-05-16] MEDS: PANTOPRAZOLE SODIUM IV 40 MG VIAL IV PUSH (08:44)
[2022-05-16] MEDS: TOLNAFTATE 1% POWDER 45 GM BTL 1 APPLIC TOPICAL (08:49)
--- NOTE | 2022-05-16 09:21 | P.PNAN_ITS ---
Anes - Prog Note Post-Op Date/Time: 05/16/22 09:21 Cardiovascular status: normal Respiratory status: normal Airway patency: baseline Mental status: baseline Post-Op hydration status: normal Vital Signs: Last Vital Signs Temp 97.9 F 05/16/22 06:00 Pulse 82 05/16/22 08:43 Resp 18 05/16/22 08:38 BP 138/53 L 05/16/22 06:00 Pulse Ox 99 05/16/22 07:46 O2 Del Method Nasal Cannula 05/16/22 07:46 O2 Flow Rate 2 05/16/22 07:46 FiO2 65 05/13/22 20:00 Pain Score (VAS): 0/10 I/O: Intake & Output 05/15/22 05/16/22 05/16/22 23:59 07:59 15:59 Intake Total 200 250 240 Output Total 500 Balance 200 250 -260 Laboratory Tests 05/16/22 06:42 05/16/22 06:42 05/15/22 05/16/22 05/16/22 06:56 06:42 06:42 WBC 6.4 RBC 2.57 L Hgb 7.7 L Hct 24.4 L MCV 94.9 MCH 30.0 MCHC 31.6 L RDW 17.2 H Plt Count 63 L MPV 11.4 H Immature Gran % (Auto) 0.8 H Neut % (Auto) 67.4 Lymph % (Auto) 17.2 L [place] % (Auto) 8.6 H Eos % (Auto) 5.2 H Baso % (Auto) 0.8 Lymph # (Auto) 1.10 [place] # (Auto) 0.6 Eos # (Auto) 0.3 Baso # (Auto) 0.1 Abs Immat Gran (auto) 0.05 H Absolute Neuts (auto) 4.3 Absolute Nucleated RBC 0.0 Nucleated RBC % 0.0 % Immature Plt Fraction 6.9 PT 22.1 H INR 2.0 Sodium Potassium Chloride Carbon Dioxide Anion Gap BUN Creatinine Estim Creat Clear Calc Estimated GFR Glucose Calcium Total Bilirubin AST ALT Alkaline Phosphatase Total Protein Albumin Blood Type O Negative 05/16/22 06:42 WBC RBC Hgb Hct MCV MCH MCHC RDW Plt Count MPV Immature Gran % (Auto) Neut % (Auto) Lymph % (Auto) [place] % (Auto) Eos % (Auto) Baso % (Auto) Lymph # (Auto) [place] # (Auto) Eos # (Auto) Baso # (Auto) Abs Immat Gran (auto) Absolute Neuts (auto) Absolute Nucleated RBC Nucleated RBC % % Immature Plt Fraction PT INR Sodium 137 Potassium 3.8 Chloride 102 Carbon Dioxide 28 Anion Gap 7 L BUN 14 Creatinine 0.70 Estim Creat Clear Calc 65 Estimated GFR > 60 Glucose 106 Calcium 8.6 Total Bilirubin 2.5 H AST 44 H ALT 20 Alkaline Phosphatase 60 Total Protein 6.0 L Albumin 3.6 Blood Type Post-procedural complaints: none Patient Feedback: Patient satisfied with anesthetic care.
[2022-05-16] MEDS: guaiFENesin/DEXTROMETHORPHAN 10 ML UDC 5 ML PO (11:04)
--- NOTE | 2022-05-16 13:07 | PM.DS ---
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 She has no prior GI bleeding. She came in with complaints of abdominal pain and emesis with blood in it. Upon evaluation here she was found have GI bleed and esophageal varices. These were banded by GI. Otherwise her hemoglobin remained stable. She will be started on carvedilol. She is otherwise doing well can follow-up with her GI doctor back in [place]. Time Spent with Patient Time attestation: Total time spent providing and/or coordinating discharge services: Exam Narrative: General: alert and oriented Psych: appropriate mood nad affect Eyes: PERRLA Neck: Trachea midline, no new lesions Skin: no changes Lungs: CTA Cardiac: Normal S1,S2, no MGR ABD: soft, nd, nt, nbs Ext: no new lesions, no cce Vasc: Pulses intact DS: Data Data Completed and Pending Labs on day of discharge: Labs from last 24 hours 05/16/22 05/16/22 05/16/22 06:42 06:42 06:42 WBC 6.4 RBC 2.57 L Hgb 7.7 L Hct 24.4 L MCV 94.9 MCH 30.0 MCHC 31.6 L RDW 17.2 H Plt Count 63 L MPV 11.4 H Immature Gran % (Auto) 0.8 H Neut % (Auto) 67.4 Lymph % (Auto) 17.2 L [place] % (Auto) 8.6 H Eos % (Auto) 5.2 H Baso % (Auto) 0.8 Lymph # (Auto) 1.10 [place] # (Auto) 0.6 Eos # (Auto) 0.3 Baso # (Auto) 0.1 Abs Immat Gran (auto) 0.05 H Absolute Neuts (auto) 4.3 Absolute Nucleated RBC 0.0 Nucleated RBC % 0.0 % Immature Plt Fraction 6.9 PT 22.1 H INR 2.0 Sodium 137 Potassium 3.8 Chloride 102 Carbon Dioxide 28 Anion Gap 7 L BUN 14 Creatinine 0.70 Estim Creat Clear Calc 65 Estimated GFR > 60 Glucose 106 Calcium 8.6 Total Bilirubin 2.5 H AST 44 H ALT 20 Alkaline Phosphatase 60 Total Protein 6.0 L Albumin 3.6 Discharge Plan Discharge Attending physician on discharge: Alphonse Krueger Consulting providers: Nguyen Simon ; Juventino Jurado ; Medhat Moon Discharging Clinician: Alphonse Krueger Patient Disposition: Home, Self-Care Activity: no preference Diet: as tolerated Patient Instructions: Antibiotic Form, Gastrointestinal Bleeding (DC), Pain Management in Older Adults (DC), Anemia (DC), Blood Transfusion (DC), Upper Endoscopy (DC) Stand Alone Forms: General Discharge Information Follow-up/Referrals: PHYSICIAN NOT ON STAFF,NONSTAFF [Primary Care Provider] - Discharge Medications: New carvedilol [Coreg] 6.25 mg Tablet 6.25 mg PO Q12HR 30 Days Qty: 60 0RF gabapentin 100 mg Capsule 100 mg PO QHS 30 Days Qty: 30 0RF pantoprazole [Protonix] 40 mg tablet,delayed release (DR/EC) 40 mg PO QAM 28 Days Qty: 28 0RF Continued albuterol sulfate 90 mcg/act
== END 2022-05-16 13:39 | disposition home or self-care (01) | DRG 369 ==
LOC: ANHED 11:54 → ANHICU 16:36 → ANHIMU 05-13 11:54 → ANH3MEDSUR 05-13 23:29 → ANHICU 05-17 11:13 → ANHIMU 05-17 11:13
PROVIDERS: Internal Medicine; Internal Medicine Gastroenterology; Physician Assistant; Student in an Organized Health Care Education/Training Program; Admitting Provider Chiropractor; Emergency Provider Emergency Medicine; Visit Provider Chiropractor
PROC: 0DJ08ZZ Inspection of Upper Intestinal Tract, Via Natural or Artificial Opening Endoscopic (ICD-10-PCS; CPT 43235; principal; 2022-05-06 18:30)
DX: I85.01 Esophageal varices with bleeding (principal); D62 Acute posthemorrhagic anemia; D68.4 Acquired coagulation factor deficiency; K76.6 Portal hypertension; K29.50 Unspecified chronic gastritis without bleeding; K75.81 Nonalcoholic steatohepatitis (NASH); K74.60 Unspecified cirrhosis of liver; Z20.822 Contact with and (suspected) exposure to COVID-19; K52.9 Noninfective gastroenteritis and colitis, unspecified; E87.6 Hypokalemia; K80.20 Calculus of gallbladder without cholecystitis without obstruction; R16.1 Splenomegaly, not elsewhere classified; E66.9 Obesity, unspecified; Z68.33 Body mass index [BMI] 33.0-33.9, adult
CPT/HCPCS: 36415; 36430; 36569; 36600; 71045; 71046; 74176; 80053; 80074; 82140; 82248; 82375; 82805; 82948; 83050; 83690; 83735; 84100; 84132; 85014; 85018; 85025; 85027; 85055; 85384; 85610; 85730; 86850; 86900; 86901; 86920; 87081; 87086; 87493; 93306; 94002; 94003; 94618; 94640; 94667; 96361; 96374; 96375; 96376; 97110; 97116; 97162; 97165; 97530; 97535; 99285; A9270; C1751; C9113; C9803; J0171; J0610; J0696; J1100; J1940; J2250; J2354; J2370; J2405; J2704; J2765; J3010; J3430; J3475; J3480; J7030; J7040; J7050; J7060; J7120; P9016; P9017; P9034; P9047; U0003; U0005